=== PATIENT | male | born 1950 | race American Indian/Alaskan Native ===

== ENCOUNTER 2017-08-06 11:15 | Emergency (ER) | payer MEDICARE ==
--- NOTE | 2017-08-06 12:18 | Emergency Department Report ---
ED General Adult HPI - General Chief complaint: Nausea/Vomiting/Diarrhea Stated complaint: DIARRHEA Time Seen by Provider: 08/06/17 12:00 Source: patient, EMS Mode of arrival: Stretcher Limitations: Altered Mental Status - History of Present Illness Initial comments: Patient is a 67-year-old male past medical history of BPH who presents with difficulty urinating. Patient states that he's had trouble urinating for the last couple of days. Her EMS report patient has been having diarrhea however patient denies having any diarrhea patient has not had any episodes of diarrhea in the emergency department. Patient states that his symptoms are moderate. Nothing makes it better or worse denies having any nausea or vomiting. Patient denies having any chest pain or shortness of breath or fever. - Related Data Home Medications Medication Instructions Recorded Confirmed Last Taken Gabapentin 300 mg PO QDAY 12/24/15 08/06/17 Unknown Levothyroxine 25 mcg PO QDAY 12/24/15 08/06/17 Unknown Namenda 10 mg PO BID 12/24/15 08/06/17 Unknown Rivastigmine [Exelon Patch 9.5 mg TRANSDERMA QDAY 12/24/15 08/06/17 Unknown 9.5mg/24hr] Tamsulosin [Flomax] 0.4 mg PO QDAY 12/24/15 08/06/17 Unknown Docusate Sodium [Stool Softener] 100 mg PO DAILY 08/06/17 08/06/17 Unknown Travoprost [Travatan Z] 5 ml OP DAILY 08/06/17 08/06/17 Unknown Allergies Allergy/AdvReac Type Severity Reaction Status Date / Time No Known Allergies Allergy Verified 12/24/15 16:32 ED Review of Systems ROS: Stated complaint: DIARRHEA Other details as noted in HPI Constitutional: denies: chills, fever Eyes: denies: eye pain, eye discharge, vision change ENT: denies: ear pain, throat pain Respiratory: denies: cough, shortness of breath, wheezing Cardiovascular: denies: chest pain, palpitations Endocrine: no symptoms reported Gastrointestinal: denies: abdominal pain, nausea, diarrhea Genitourinary: as per HPI, other (difficulty urinating). denies: urgency, dysuria Musculoskeletal: denies: back pain, joint swelling, arthralgia Skin: denies: rash, lesions Neurological: denies: headache, weakness, paresthesias Psychiatric: denies: anxiety, depression Hematological/Lymphatic: denies: easy bleeding, easy bruising ED Past Medical Hx - Past Medical History Previous Medical History?: Yes Hx Congestive Heart Failure: No Hx Diabetes: No Hx Asthma: No Hx COPD: No Hx Dementia: Yes Additional medical history: hypothyroidism, bph, cataracts, korsakoss syndrome - Social History Smoking Status: Never Smoker Substance Use Type: None - Medications Home Medications: Home Medications Medication Instructions Recorded Confirmed Last Taken Type Gabapentin 300 mg PO QDAY 12/24/15 08/06/17 Unknown History Levothyroxine 25 mcg PO QDAY 12/24/15 08/06/17 Unknown History Namenda 10 mg PO BID 12/24/15 08/06/17 Unknown History Rivastigmine [Exelon Patch 9.5 mg TRANSDERMA QDAY 12/24/15 08/06/17 Unknown History 9.5mg/24hr] Tamsulosin [Flomax] 0.4 mg PO QDAY 12/24/15 08/06/17 Unknown History Docusate Sodium [Stool Softener] 100 mg PO DAILY 08/06/17 08/06/17 Unknown History Travoprost [Travatan Z] 5 ml OP DAILY 08/06/17 08/06/17 Unknown History ED Physical Exam - General Limitations: Altered Mental Status General appearance: alert, in no apparent distress - Head Head exam: Present: atraumatic, normocephalic - Eye Eye exam: Present: normal appearance - ENT ENT exam: Present: mucous membranes moist - Neck Neck exam: Present: normal inspection - Respiratory Respiratory exam: Present: normal lung sounds bilaterally. Absent: respiratory distress - Cardiovascular Cardiovascular Exam: Present: regular rate, normal rhythm. Absent: systolic murmur, diastolic murmur, rubs, gallop - GI/Abdominal GI/Abdominal exam: Present: soft, normal bowel sounds - Rectal Rectal exam: Present: deferred - Extremities Exam Extremities exam: Present: normal inspection - Back Exam Back exam: Present: normal inspection - Neurological Exam Neurological exam: Present: alert, oriented X3 - Psychiatric Psychiatric exam: Present: normal affect, normal mood - Skin Skin exam: Present: warm, dry, intact, normal color. Absent: rash ED Course Vital Signs 08/06/17 08/06/17 08/06/17 11:30 11:36 12:00 Temperature 97.6 F Pulse Rate 50 L 54 L 52 L Respiratory 14 20 17 Rate Blood Pressure 111/68 111/68 107/62 O2 Sat by Pulse 98 98 96 Oximetry 08/06/17 08/06/17 08/06/17 12:31 13:00 13:31 Temperature Pulse Rate 57 L 53 L Respiratory 17 17 19 Rate Blood Pressure 107/62 102/64 102/64 O2 Sat by Pulse 96 96 95 Oximetry ED Medical Decision Making - Lab Data Result diagrams: 08/06/17 12:05 08/06/17 12:01 Lab Results 08/06/17 08/06/17 08/06/17 Range/Units 12:01 12:05 13:35 WBC 9.0 (4.5-11.0) K/mm3 RBC 4.40 (3.65-5.03) M/mm3 Hgb 13.2 (11.8-15.2) gm/dl Hct 40.6 (35.5-45.6) % MCV 92 (84-94) fl MCH 30 (28-32) pg MCHC 33 (32-34) % RDW 13.3 (13.2-15.2) % Plt Count 186 (140-440) K/mm3 Lymph % (Auto) 21.0 (13.4-35.0) % [place] % (Auto) 7.8 H (0.0-7.3) % Eos % (Auto) 1.8 (0.0-4.3) % Baso % (Auto) 0.6 (0.0-1.8) % Lymph # 1.9 (1.2-5.4) K/mm3 [place] # 0.7 (0.0-0.8) K/mm3 Eos # 0.2 (0.0-0.4) K/mm3 Baso # 0.1 (0.0-0.1) K/mm3 Seg Neutrophils % 68.8 (40.0-70.0) % Seg Neutrophils # 6.2 (1.8-7.7) K/mm3 Sodium 143 (137-145) mmol/L Potassium 4.5 (3.6-5.0) mmol/L Chloride 107.0 (98-107) mmol/L Carbon Dioxide 26 (22-30) mmol/L Anion Gap 15 mmol/L BUN 25 H (9-20) mg/dL Creatinine 0.8 (0.8-1.5) mg/dL Estimated GFR > 60 ml/min BUN/Creatinine Ratio 31 % Glucose 92 (75-100) mg/dL Calcium 8.5 (8.4-10.2) mg/dL Urine Color Yellow (Yellow) Urine Turbidity Clear (Clear) Urine pH 5.0 (5.0-7.0) Ur Specific [place] 1.026 (1.003-1.030) Urine Protein <15 mg/dl (Negative) mg/dL Urine Glucose (UA) Neg (Negative) mg/dL Urine Ketones Neg (Negative) mg/dL Urine Blood Neg (Negative) Urine Nitrite Neg (Negative) Urine Bilirubin Neg (Negative) Urine Urobilinogen < 2.0 (<2.0) mg/dL Ur Leukocyte Esterase Neg (Negative) Urine WBC (Auto) 1.0 (0.0-6.0) /HPF Urine RBC (Auto) 2.0 (0.0-6.0) /HPF Urine Mucus Few /HPF - Medical Decision Making Chief medical diagnosis: BPH Differential medical diagnosis: Electrolyte abnormality, UTI I will get patient CBC, CMP and urinalysis and I'll place a Mixon catheter in patient. Patient is not having any diarrhea episode in the ED I will send patient back to where he was. Critical care attestation.: If time is entered above; I have spent that time in minutes in the direct care of this critically ill patient, excluding procedure time. ED Disposition Clinical Impression: Mixon catheter in place BPH (benign prostatic hyperplasia) Qualifiers: Lower urinary tract symptom presence: symptoms present Lower urinary tract symptom detail: incomplete bladder emptying Qualified Code(s): N40.1 - Benign prostatic hyperplasia with lower urinary tract symptoms; R39.14 - Feeling of incomplete bladder emptying; R39.14 - Feeling of incomplete bladder emptying Disposition: - TO HOME OR SELFCARE Is pt being admited?: No Does the pt Need Aspirin: No Condition: Stable Instructions: Mixon Catheter Placement and Care (ED), Urinary Leg Bag (GEN) Referrals: HANNAH TORRES MD [Staff Physician] - 3-5 Days
[2017-08-06 12:21] LABS: Basophils % (Auto) 0.6 % (0.0-1.8); Eosinophils % (Auto) 1.8 % (0.0-4.3); Hematocrit 40.6 % (35.5-45.6); Hemoglobin 13.2 gm/dl (11.8-15.2); Mean Corpuscular HGB Conc 33 % (32-34); Mean Corpuscular Hemoglobin 30 pg (28-32); Mean Corpuscular Volume 92 fl (84-94); Platelet Count 186 K/mm3 (140-440); Red Cell Distribution Width 13.3 % (13.2-15.2)
[2017-08-06 12:38] LABS: Anion Gap 15 mmol/L; BUN/Creatinine Ratio 31; Blood Urea Nitrogen 25 mg/dL (9-20); Calcium 8.5 mg/dL (8.4-10.2); Carbon Dioxide 26 mmol/L (22-30); Glucose 92 mg/dL (75-100); Potassium 4.5 mmol/L (3.6-5.0); Sodium 143 mmol/L (137-145)
[2017-08-06 13:55] LABS: Bilirubin,Urine NEG (Negative); Blood,Urine NEG (Negative); Ketones,Urine NEG (Negative); Leukocyte Esterase,Urine NEG (Negative); Mucus,Urine FEW /HPF; Nitrite,Urine NEG (Negative); Protein,Urine <15 mg/dL mg/dL (Negative); Urobilinogen,Urine < 2.0 mg/dL (<2.0)
[2017-08-06 16:49] VITALS: BP 110/70
== END 2017-08-06 17:01 | disposition home or self-care (01) ==
LOC: ED 11:15
DX: N40.1 Benign prostatic hyperplasia with lower urinary tract symptoms (principal); R39.14 Feeling of incomplete bladder emptying; E03.9 Hypothyroidism, unspecified
CPT/HCPCS: 36415; 51702; 80048; 81001; 85025

== ENCOUNTER 2017-08-07 09:30 | Emergency (ER) | payer MEDICARE ==
[2017-08-07 09:56] VITALS: BP 126/73
[2017-08-07] MEDS ORDERED: NACL 0.9% 1000 ML 1,000 ML IV ONE (12:38)
[2017-08-07] MEDS ORDERED: NACL ONE (12:57)
[2017-08-07 13:48] LABS: Alanine Aminotransferase 15 units/L (7-56); Albumin 4.6 g/dL (3.9-5); Albumin/Globulin Ratio 1.5 %; Alkaline Phosphatase 75 units/L (35-129); Anion Gap 16 mmol/L; BUN/Creatinine Ratio 40; Blood Urea Nitrogen 28 mg/dL (9-20); Calcium 9.2 mg/dL (8.4-10.2); Carbon Dioxide 23 mmol/L (22-30); Chloride 108.5 mmol/L (98-107); Glucose 96 mg/dL (75-100); Potassium 4.3 mmol/L (3.6-5.0); Sodium 143 mmol/L (137-145); Total Protein 7.7 g/dL (6.3-8.2)
--- NOTE | 2017-08-07 13:52 | Cat Scan Report ---
CT ABDOMEN AND PELVIS WITH CONTRAST: 08/07/17 09:30:00 CLINICAL: Diarrhea. COMPARISON: None. TECHNIQUE: Volumetric acquisition and 1.25 millimeter scan reconstructions after the uneventful intravenous injection of 100 cc Omnipaque 300. Consent was obtained prior to the administration of contrast. Oral contrast was not given. FINDINGS: Abdomen: Clear lung bases.Normal liver, bile ducts and gallbladder. The stomach is distended with fluid, secretions and air. A gastric mass or ulcer. Normal duodenum and spleen. The pancreas is normal except for a dilated pancreatic duct (4 mm) and a pancreatic tail cyst measuring 2.4 x 1.5 cm. No pancreatic calcifications, inflammatory changes or fluid collections. Normal right kidney within nondilated collecting system and ureter. Mild dilatation of the left renal collecting system and pelvis but no ureteral dilatation. No urinary calculus, mass or cyst. Normal adrenal glands. The small bowel is normal except for a few fluid-filled small bowel loops. The colon is filled with fluid. No colonic wall thickening or mass. No diverticulosis.An appendix is not identified. No mass, lymphadenopathy or ascites.No pneumoperitoneum. Pelvis: Normal urinary bladder with a Mixon catheter.A midline pelvic phlebolith measures 1.4 cm. Normal rectum and sigmoid colon. Bone windows demonstrate no bone lesion. IMPRESSION:1. Abundant fluid in bowel but no inflammatory changes to suggest enteritis or colitis. 2. 2.4 cm pancreatic tail cyst. 3. Pancreatic ductal dilatation but no signs of acute or chronic pancreatitis. 4. Gastric distention suggests gastroparesis.
--- NOTE | 2017-08-07 14:14 | Emergency Department Report ---
ED N/V/D HPI - General Chief complaint: Nausea/Vomiting/Diarrhea Stated complaint: DIARRHEA Time Seen by Provider: 08/07/17 12:23 Source: patient Mode of arrival: Ambulatory Limitations: Physical Limitation - History of Present Illness Initial comments: 67-year-old male with a past medical history of dementia, korsakoss syndrome, hypothyroidism, and BPH presents from the [facility] with diarrhea. Patient was here yesterday with urinary retention and received evaluation and received Mixon catheter insertion. Complaint was also diarrhea at this time but it was documented a patient did not have a loose stools during ED stay. 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 Episodes have continued since his discharge from the hospital yesterday and his urinary catheter appears to be leaking. Patient denies any pain. Patient denies of pain to his penile area at cath insertion. No complaints of fever, recent travel, sick contacts, or recent antibiotic use. - Related Data Home Medications Medication Instructions Recorded Confirmed Last Taken Gabapentin 300 mg PO QDAY 12/24/15 08/06/17 Unknown Levothyroxine 25 mcg PO QDAY 12/24/15 08/06/17 Unknown Namenda 10 mg PO BID 12/24/15 08/06/17 Unknown Rivastigmine [Exelon Patch 9.5 mg TRANSDERMA QDAY 12/24/15 08/06/17 Unknown 9.5mg/24hr] Tamsulosin [Flomax] 0.4 mg PO QDAY 12/24/15 08/06/17 Unknown Docusate Sodium [Stool Softener] 100 mg PO DAILY 08/06/17 08/06/17 Unknown Travoprost [Travatan Z] 5 ml OP DAILY 08/06/17 08/06/17 Unknown Previous Rx's Medication Instructions Recorded Last Taken Type Loperamide [Imodium] 2 mg PO Q2HR #20 capsule 08/07/17 Unknown Rx Allergies Allergy/AdvReac Type Severity Reaction Status Date / Time No Known Allergies Allergy Verified 08/07/17 09:50 ED Review of Systems ROS: Stated complaint: DIARRHEA Other details as noted in HPI Comment: All other systems reviewed and negative Other: Constitutional: No fevers chills Eyes: No eye pain visual changes ENT: No ear pain or throat pain Neck: Denies pain Respiratory: Denies cough wheezing shortness of breath Cardiovascular: Denies chest pain, palpitations, syncope GI: Denies abdominal pain, nausea, vomiting : As per HPI Musculoskeletal: Denies back pain Skin: Denies rash, lesions, erythema Neurologic: Denies headache, numbness, weakness Psychiatric: Denies suicidal ideation, hallucinations ED Past Medical Hx - Past Medical History Hx Congestive Heart Failure: No Hx Diabetes: No Hx Asthma: No Hx COPD: No Hx Dementia: Yes Additional medical history: hypothyroidism, bph, cataracts, korsakoss syndrome - Social History Smoking Status: Never Smoker Substance Use Type: None - Medications Home Medications: Home Medications Medication Instructions Recorded Confirmed Last Taken Type Gabapentin 300 mg PO QDAY 12/24/15 08/06/17 Unknown History Levothyroxine 25 mcg PO QDAY 12/24/15 08/06/17 Unknown History Namenda 10 mg PO BID 12/24/15 08/06/17 Unknown History Rivastigmine [Exelon Patch 9.5 mg TRANSDERMA QDAY 12/24/15 08/06/17 Unknown History 9.5mg/24hr] Tamsulosin [Flomax] 0.4 mg PO QDAY 12/24/15 08/06/17 Unknown History Docusate Sodium [Stool Softener] 100 mg PO DAILY 08/06/17 08/06/17 Unknown History Travoprost [Travatan Z] 5 ml OP DAILY 08/06/17 08/06/17 Unknown History Loperamide [Imodium] 2 mg PO Q2HR #20 capsule 08/07/17 Unknown Rx ED Physical Exam - General Limitations: Physical Limitation - Other Other exam information: General: No limitations, patient is alert in no acute distress Head exam: Atraumatic, normocephalic Eyes exam: Normal appearance ENT: Moist mucous membrane, normal oropharynx Neck exam: Normal inspection, full range of motion, no meningismus nontender Respiratory exam: Clear to auscultation bilateral, no wheezes, rales, crackles Cardiovascular: Normal rate and rhythm, normal heart sounds Abdomen: Soft, nondistended, hyperactive bowel sounds, no rebound or guarding, nontender : Uncircumcised with Mixon catheter in place. Discomfort at insertion site. No penile lesions, testicular tenderness, edema, or erythema Extremity: Full range of motion normal inspection no deformity Back: Normal Inspection, full range of motion, no tenderness Neurologic: Alert, oriented x3, cranial nerves intact, no motor or sensory deficit Psychiatric: normal affect, normal mood Skin: Warm, dry, intact ED Course Vital Signs 08/07/17 08/07/17 09:53 12:38 Temperature 97.7 F Pulse Rate 67 Respiratory 20 16 Rate Blood Pressure 126/73 O2 Sat by Pulse 100 97 Oximetry - Reevaluation(s) Reevaluation #1: 08/07/17 14:16 Patient treated with 1 L normal saline in the ED. Remains pain-free ED Medical Decision Making - Lab Data Result diagrams: 08/07/17 14:53 08/07/17 13:06 Lab Results 08/07/17 08/07/17 08/07/17 Range/Units 13:06 13:06 14:53 WBC TNR 12.3 H RBC TNR 4.51 Hgb TNR 14.1 Hct TNR 41.7 MCV TNR 93 MCH TNR 31 MCHC TNR 34 RDW TNR 13.4 Plt Count TNR 181 Lymph % (Auto) TNR 13.0 L [place] % (Auto) TNR 6.0 Eos % (Auto) TNR 1.3 Baso % (Auto) TNR 0.5 Lymph # TNR 1.6 [place] # TNR 0.7 Eos # TNR 0.2 Baso # TNR 0.1 Seg Neutrophils % TNR 79.2 H Seg Neutrophils # TNR 9.7 H Sodium 143 (137-145) mmol/L Potassium 4.3 (3.6-5.0) mmol/L Chloride 108.5 H (98-107) mmol/L Carbon Dioxide 23 (22-30) mmol/L Anion Gap 16 mmol/L BUN 28 H (9-20) mg/dL Creatinine 0.7 L (0.8-1.5) mg/dL Estimated GFR > 60 ml/min BUN/Creatinine Ratio 40 % Glucose 96 (75-100) mg/dL Calcium 9.2 (8.4-10.2) mg/dL Total Bilirubin 0.30 (0.1-1.2) mg/dL AST 17 (5-40) units/L ALT 15 (7-56) units/L Alkaline Phosphatase 75 (35-129) units/L Total Protein 7.7 (6.3-8.2) g/dL Albumin 4.6 (3.9-5) g/dL Albumin/Globulin Ratio 1.5 % - Radiology Data Radiology results: report reviewed CT abdomen and pelvis IV contrast: abundant fluid in the bowel but no inflammatory changes to suggest enteritis or colitis. 2.4 cm pancreatic tail cysts. Pancreatic ductal dilatation but no signs of acute or chronic pancreatitis. Gastric distention suggests gastroparesis - Medical Decision Making Patient is nontoxic appearing and does not have any pain. CT does not show any inflammatory changes therefore do not believe that antibiotics are indicated at this time. Patient be treated symptomatically for diarrhea. CT shows gastric distention suggestive gastroparesis however pt does not have any nausea or vomiting. Pancreatic cyst seen without signs of pancreatitis and patient does not have any epigastric tenderness - Differential Diagnosis gastroenteritis, colitis, infectious diarrhea Critical Care Time: No Critical care attestation.: If time is entered above; I have spent that time in minutes in the direct care of this critically ill patient, excluding procedure time. ED Disposition Clinical Impression: Acute diarrhea Disposition: DC-01 TO HOME OR SELFCARE Is pt being admited?: No Does the pt Need Aspirin: No Condition: Stable Instructions: Acute Diarrhea (ED) Additional Instructions: Take the Imodium as needed. Continue to drink plenty of fluids. Return if symptoms worsen as indicated by your discharge instructions Prescriptions: Loperamide [Imodium] 2 mg PO Q2HR #20 capsule Referrals: BENJIE VELASCO MD [Primary Care Provider] - 3-5 Days Time of Disposition: 16:14
[2017-08-07 14:25] LABS: Hematocrit TNR % (35.5-45.6); Hemoglobin TNR gm/dl (11.8-15.2); Mean Corpuscular HGB Conc TNR % (32-34); Mean Corpuscular Hemoglobin TNR pg (28-32); Mean Corpuscular Volume TNR fl (84-94); Red Blood Count TNR M/mm3 (3.65-5.03); White Blood Count TNR K/mm3 (4.5-11.0)
[2017-08-07 14:26] LABS: Basophils % (Auto) TNR % (0.0-1.8); Eosinophils % (Auto) TNR % (0.0-4.3); Mean Platelet Volume TNR fl (6-12); Platelet Count TNR K/mm3 (140-440); Red Cell Distribution Width TNR % (13.2-15.2)
[2017-08-07 15:20] LABS: Basophils % (Auto) 0.5 % (0.0-1.8); Eosinophils % (Auto) 1.3 % (0.0-4.3); Hematocrit 41.7 % (35.5-45.6); Hemoglobin 14.1 gm/dl (11.8-15.2); Mean Corpuscular HGB Conc 34 % (32-34); Mean Corpuscular Hemoglobin 31 pg (28-32); Mean Corpuscular Volume 93 fl (84-94); Platelet Count 181 K/mm3 (140-440); Red Blood Count 4.51 M/mm3 (3.65-5.03); Red Cell Distribution Width 13.4 % (13.2-15.2); White Blood Count 12.3 K/mm3 (4.5-11.0)
[2017-08-07] MEDS ORDERED: IMODIUM PO ONE (15:21)
== END 2017-08-07 17:00 | disposition home or self-care (01) ==
LOC: ED 09:30
DX: R19.7 Diarrhea, unspecified (principal); E03.9 Hypothyroidism, unspecified; K86.2 Cyst of pancreas
CPT/HCPCS: 36415; 74177; 80053; 85025; 96360; 96361; 99284; J7030; Q9967

== ENCOUNTER 2021-04-12 12:43 | Observation (INO) | payer MEDICARE ==
[2021-04-12 14:40] LABS: Basophils % (Auto) 0.7 % (0.0-1.8); Eosinophils # (Auto) 0.2 K/mm3 (0.0-0.4); Eosinophils % (Auto) 2.8 % (0.0-4.3); Hematocrit 40.8 % (35.5-45.6); Hemoglobin 13.9 gm/dl (11.8-15.2); Lymphocytes # (Auto) 1.9 K/mm3 (1.2-5.4); Lymphocytes % (Auto) 28.2 % (13.4-35.0); Mean Corpuscular HGB Conc 34 % (32-34); Mean Corpuscular Volume 91 fl (84-94); Monocytes # (Auto) 0.6 K/mm3 (0.0-0.8); Monocytes % (Auto) 8.4 % (0.0-7.3); Platelet Count 198 K/mm3 (140-440); Red Cell Distribution Width 13.4 % (13.2-15.2)
[2021-04-12 15:03] LABS: Alanine Aminotransferase 12 units/L (7-56); Albumin 4.2 g/dL (3.9-5); BUN/Creatinine Ratio 31; Blood Urea Nitrogen 31 mg/dL (9-20); Calcium 8.6 mg/dL (8.4-10.2); Hemolysis Index 5
[2021-04-12] MEDS ORDERED: SODIUM CHLORIDE 0.9% 500 ML 500 ML IV ONE (18:03)
--- NOTE | 2021-04-12 18:15 | Emergency Department Report ---
HPI - General Chief Complaint: Weakness Time Seen by Provider: 04/12/21 18:00 - HPI HPI: This is a 71-year-old male who presents to the emergency department via EMS from [facility] with the complaint of feeling weak. 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 Patient is currently AAO x2, to person and place but not time. Otherwise he is jovial, awake, and has no complaints. He denies any fever, chest pain, shortness of breath, nausea, vomiting. It does not appear that the patient received anything for the alleged complaints. I was later able to get in touch with the staff supervisor blasting at [facility] ([phone]), and she tells me that the patient did pass out while in the bathroom earlier today which is what prompted the call for EMS. ED Past Medical Hx - Past Medical History Previous Medical History?: Yes Hx Congestive Heart Failure: No Hx Diabetes: No Hx Asthma: No Hx COPD: No Hx Dementia: Yes Additional medical history: hypothyroidism, bph, cataracts, korsakoss syndrome - Surgical History Past Surgical History?: No - Social History Smoking Status: Never Smoker Substance Use Type: None - Medications Home Medications: Home Medications Medication Instructions Recorded Confirmed Last Taken Type Gabapentin 300 mg PO QDAY 12/24/15 08/06/17 Unknown History Levothyroxine 25 mcg PO QDAY 12/24/15 08/06/17 Unknown History Namenda 10 mg PO BID 12/24/15 08/06/17 Unknown History Rivastigmine [Exelon Patch 9.5 mg TRANSDERMA QDAY 12/24/15 08/06/17 Unknown H istory 9.5mg/24hr] Tamsulosin [Flomax] 0.4 mg PO QDAY 12/24/15 08/06/17 Unknown History Docusate Sodium [Stool Softener] 100 mg PO DAILY 08/06/17 08/06/17 Unknown History Travoprost (Nf) [Travatan Z] 5 ml OP DAILY 08/06/17 08/06/17 Unknown History Loperamide [Imodium] 2 mg PO Q2HR #20 capsule 08/07/17 Unknown Rx ED Review of Systems ROS: Stated complaint: WEAKNESS Other details as noted in HPI Comment: All other systems reviewed and negative Constitutional: weakness (Per EMS). denies: chills, fever Eyes: denies: eye pain, vision change ENT: denies: ear pain, throat pain Respiratory: denies: cough, shortness of breath Cardiovascular: denies: chest pain, palpitations Gastrointestinal: denies: abdominal pain, vomiting Genitourinary: denies: dysuria, discharge Musculoskeletal: denies: back pain, arthralgia Skin: denies: rash, lesions Neurological: denies: headache, weakness Physical Exam - Physical Exam Vital Signs: Vital Signs 04/12/21 12:53 Temperature 98.3 F Pulse Rate 56 L Respiratory 16 Rate Blood Pressure 116/68 [Left] O2 Sat by Pulse 94 Oximetry Physical Exam: GENERAL: The patient is well-developed well-nourished. HENT: Normocephalic. Atraumatic. Patient has moist mucous membranes. EYES: Extraocular motions are intact. No nystagmus. NECK: Supple. Trachea is midline. CHEST/LUNGS: Clear to auscultation. There is no respiratory distress noted. HEART/CARDIOVASCULAR: Regular. There is no tachycardia. There is no murmur. ABDOMEN: Abdomen is soft, nontender. Patient has normal bowel sounds. There is no abdominal distention. SKIN: Skin is warm and dry. NEURO: The patient is awake, alert, and cooperative, but confused. AAO x2 to person and place but not time. Normal speech. No facial asymmetry. No pronator drift. MUSCULOSKELETAL: There is no tenderness or deformity. ED Course Vital Signs 04/12/21 12:53 Temperature 98.3 F Pulse Rate 56 L Respiratory 16 Rate Blood Pressure 116/68 [Left] O2 Sat by Pulse 94 Oximetry - Consultations Consultation #1: 04/12/21 20:39 I spoke with the contract officer on-call, Dr. Sanabria. We discussed the patient's bradycardia including the patient having a first-degree AV block and the possibility of some of his medications causing the bradycardia as well. At that time, due to the patient's dementia, we did not know what the symptoms were leading up to the patient coming to the emergency department for evaluation. I was later able to speak with the staff supervisor blasting at the [facility] who says that the patient did pass out prior to presentation. Therefore, the patient will be admitted for further evaluation and [facility] will consult. ED Medical Decision Making - Lab Data Result diagrams: 04/12/21 22:43 04/12/21 22:43 Lab Results 04/12/21 04/12/21 04/12/21 Range/Units 14:25 14:25 17:40 WBC 6.7 (4.5-11.0) K/mm3 RBC 4.50 (3.65-5.03) M/mm3 Hgb 13.9 (11.8-15.2) gm/dl Hct 40.8 (35.5-45.6) % MCV 91 (84-94) fl MCH 31 (28-32) pg MCHC 34 (32-34) % RDW 13.4 (13.2-15.2) % Plt Count 198 (140-440) K/mm3 Lymph % (Auto) 28.2 (13.4-35.0) % [place] % (Auto) 8.4 H (0.0-7.3) % Eos % (Auto) 2.8 (0.0-4.3) % Baso % (Auto) 0.7 (0.0-1.8) % Lymph # (Auto) 1.9 (1.2-5.4) K/mm3 [place] # (Auto) 0.6 (0.0-0.8) K/mm3 Eos # (Auto) 0.2 (0.0-0.4) K/mm3 Baso # (Auto) 0.0 (0.0-0.1) K/mm3 Seg Neutrophils % 59.9 (40.0-70.0) % Seg Neutrophils # 4.0 (1.8-7.7) K/mm3 Sodium 141 (137-145) mmol/L Potassium 4.6 (3.6-5.0) mmol/L Chloride 108.3 H (98-107) mmol/L Carbon Dioxide 25 (22-30) mmol/L Anion Gap 12 mmol/L BUN 31 H (9-20) mg/dL Creatinine 1.0 (0.8-1.3) mg/dL Estimated GFR > 60 ml/min BUN/Creatinine Ratio 31 % Glucose 88 (75-100) mg/dL Calcium 8.6 (8.4-10.2) mg/dL Total Bilirubin 0.30 (0.1-1.2) mg/dL AST 14 (5-40) units/L ALT 12 (7-56) units/L Alkaline Phosphatase 79 (35-129) units/L Ammonia (25-60) umol/L Troponin T < 0.010 (0.00-0.029) ng/mL Total Protein 6.6 (6.3-8.2) g/dL Albumin 4.2 (3.9-5) g/dL Albumin/Globulin Ratio 1.8 % TSH (0.270-4.200) mlU/mL Urine Bilirubin (Negative) Urine RBC (Auto) (0.0-6.0) /HPF U Epithel Cells (Auto) (0-13.0) /HPF 04/12/21 04/12/21 04/12/21 Range/Units 18:18 18:18 22:12 WBC (4.5-11.0) K/mm3 RBC (3.65-5.03) M/mm3 Hgb (11.8-15.2) gm/dl Hct (35.5-45.6) % MCV (84-94) fl MCH (28-32) pg MCHC (32-34) % RDW (13.2-15.2) % Plt Count (140-440) K/mm3 Lymph % (Auto) (13.4-35.0) % [place] % (Auto) (0.0-7.3) % Eos % (Auto) (0.0-4.3) % Baso % (Auto) (0.0-1.8) % Lymph # (Auto) (1.2-5.4) K/mm3 [place] # (Auto) (0.0-0.8) K/mm3 Eos # (Auto) (0.0-0.4) K/mm3 Baso # (Auto) (0.0-0.1) K/mm3 Seg Neutrophils % (40.0-70.0) % Seg Neutrophils # (1.8-7.7) K/mm3 Sodium (137-145) mmol/L Potassium (3.6-5.0) mmol/L Chloride (98-107) mmol/L Carbon Dioxide (22-30) mmol/L Anion Gap mmol/L BUN (9-20) mg/dL Creatinine (0.8-1.3) mg/dL Estimated GFR ml/min BUN/Creatinine Ratio % Glucose (75-100) mg/dL Calcium (8.4-10.2) mg/dL Total Bilirubin (0.1-1.2) mg/dL AST (5-40) units/L ALT (7-56) units/L Alkaline Phosphatase (35-129) units/L Ammonia 18.0 L (25-60) umol/L Troponin T (0.00-0.029) ng/mL Total Protein (6.3-8.2) g/dL Albumin (3.9-5) g/dL Albumin/Globulin Ratio % TSH 2.900 (0.270-4.200) mlU/mL Urine Bilirubin Neg (Negative) Urine RBC (Auto) < 1.0 (0.0-6.0) /HPF U Epithel Cells (Auto) < 1.0 (0-13.0) /HPF 04/12/21 04/12/21 Range/Units 22:43 22:43 WBC 6.0 (4.5-11.0) K/mm3 RBC 4.38 (3.65-5.03) M/mm3 Hgb 13.3 (11.8-15.2) gm/dl Hct 40.0 (35.5-45.6) % MCV 91 (84-94) fl MCH 30 (28-32) pg MCHC 33 (32-34) % RDW 13.6 (13.2-15.2) % Plt Count 171 (140-440) K/mm3 Lymph % (Auto) 35.4 H (13.4-35.0) % [place] % (Auto) 9.4 H (0.0-7.3) % Eos % (Auto) 2.9 (0.0-4.3) % Baso % (Auto) 0.5 (0.0-1.8) % Lymph # (Auto) 2.1 (1.2-5.4) K/mm3 [place] # (Auto) 0.6 (0.0-0.8) K/mm3 Eos # (Auto) 0.2 (0.0-0.4) K/mm3 Baso # (Auto) 0.0 (0.0-0.1) K/mm3 Seg Neutrophils % 51.8 (40.0-70.0) % Seg Neutrophils # 3.1 (1.8-7.7) K/mm3 Sodium 140 (137-145) mmol/L Potassium 4.0 (3.6-5.0) mmol/L Chloride 107.2 H (98-107) mmol/L Carbon Dioxide 26 (22-30) mmol/L Anion Gap 11 mmol/L BUN 29 H (9-20) mg/dL Creatinine 0.9 (0.8-1.3) mg/dL Estimated GFR > 60 ml/min BUN/Creatinine Ratio 32 % Glucose 78 (75-100) mg/dL Calcium 8.2 L (8.4-10.2) mg/dL Total Bilirubin (0.1-1.2) mg/dL AST (5-40) units/L ALT (7-56) units/L Alkaline Phosphatase (35-129) units/L Ammonia (25-60) umol/L Troponin T (0.00-0.029) ng/mL Total Protein (6.3-8.2) g/dL Albumin (3.9-5) g/dL Albumin/Globulin Ratio % TSH (0.270-4.200) mlU/mL Urine Bilirubin (Negative) Urine RBC (Auto) (0.0-6.0) /HPF U Epithel Cells (Auto) (0-13.0) /HPF - EKG Data -: EKG Interpreted by Me EKG shows normal: sinus rhythm, axis, intervals (Prolonged WA interval), QRS complexes, ST-T waves Rate: bradycardia (45 bpm) - EKG Data When compared to previous EKG there are: previous EKG unavailable Interpretation: other (Sinus bradycardia 45 bpm, first-degree AV block. No ST elevation [place].) - Radiology Data Radiology results: image reviewed interpreted by me: Chest x-ray does not show any acute process. There are no pleural effusions, obvious pneumonia and there is no pneumothorax. No widened mediastinum. - Medical Decision Making Initially the patient presented to the emergency department with just the comp laint, per EMS, of "weakness." I was later able to speak with the staff supervisor blasting at the patient's [facility] who did confirm that patient had a syncopal episode in the bathroom prior to presentation. Since my initial examination the patient has been awake, cooperative, but is confused at AAO x2. However he does have a diagnosed history of dementia and Wernicke Korsakoff. Other than the confusion, the patient does not have any focal, motor or sensory deficits and his cranial nerves are intact. EKG did not have any morphology consistent with ST elevation myocardial infarction. He does have a prolonged WA interval indicating a first-degree AV block. The EKG shows bradycardia at 43 bpm. The patient's labs have been mostly unremarkable including CBC, metabolic panel, negative troponin, normal thyroid function. During the patient's ED course he has been seen having bradycardia as low as 39 bpm while at rest. This may be partially from his first-degree AV block. The patient is on Exelon for his dementia which also may add to the bradycardia. However, after speaking with cardiology, since the patient appears to have symptomatic bradycardia causing his syncope, he will be admitted to the hospital for further evaluation and treatment. He was accepted for admission by the hospitalist, Dr. Calixto. Critical Care Time: No Critical care attestation.: If time is entered above; I have spent that time in minutes in the direct care of this critically ill patient, excluding procedure time. ED Disposition Clinical Impression: Symptomatic bradycardia Syncope Qualifiers: Syncope type: unspecified Qualified Code(s): R55 - Syncope and collapse Disposition: 09 OP ADMIT IP TO THIS HOSP Is pt being admited?: Yes Condition: Fair Instructions: Syncope (ED) Referrals: BENJIE VELASCO MD [Primary Care Provider] - 3-5 Days Time of Disposition: 21:51
[2021-04-12] MEDS ORDERED: ACETAMINOPHEN 325 MG TAB PO PRN (22:17)
[2021-04-12] MEDS ORDERED: traMADol 50 MG TAB PO PRN (22:17)
[2021-04-12] MEDS ORDERED: MORPHINE 4 MG/1 ML INJ IV PRN (22:17)
[2021-04-12] MEDS ORDERED: NITROGLYCERIN 0.4 MG TAB SUBL SL PRN (22:17)
--- NOTE | 2021-04-12 22:27 | History and Physical Report ---
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 Patient is currently AAO x2, to person and place but not time. Otherwise he is jovial, awake, and has no complaints. He denies any fever, chest pain, shortness of breath, nausea, vomiting. It does not appear that the patient received anything for the alleged complaints. [facility] department supervisor [facility] ([phone]), and she tells me that the patient did pass out while in the bathroom earlier today which is what prompted the call for EMS. In the emergency room patient heart rate ranging from 42 43-59. Patient denies any chest pain no dizziness Past History Past Medical History: hypothyroidism, other (Dementia BPH, cataract, Korsakoff syndrome) Medications and Allergies Allergies Allergy/AdvReac Type Severity Reaction Status Date / Time No Known Allergies Allergy Verified 04/12/21 17:54 Home Medications Medication Instructions Recorded Confirmed Last Taken Type Gabapentin 300 mg PO QDAY 12/24/15 08/06/17 Unknown History Levothyroxine 25 mcg PO QDAY 12/24/15 08/06/17 Unknown History Namenda 10 mg PO BID 12/24/15 08/06/17 Unknown History Rivastigmine [Exelon Patch 9.5 mg TRANSDERMA QDAY 12/24/15 08/06/17 Unknown History 9.5mg/24hr] Tamsulosin [Flomax] 0.4 mg PO QDAY 12/24/15 08/06/17 Unknown History Docusate Sodium [Stool Softener] 100 mg PO DAILY 08/06/17 08/06/17 Unknown History Travoprost (Nf) [Travatan Z] 5 ml OP DAILY 08/06/17 08/06/17 Unknown History Loperamide [Imodium] 2 mg PO Q2HR #20 capsule 08/07/17 Unknown Rx Active Meds: Active Medications Acetaminophen (Acetaminophen 325 Mg Tab) 650 mg PO Q6H PRN PRN Reason: Pain, Mild (1-3) Aspirin (Aspirin 81 Mg Tab Chew) 81 mg PO QDAY [facility] Atorvastatin Calcium (Atorvastatin 40 Mg Tab) 40 mg PO QHS [facility] Heparin Sodium (Porcine) (Heparin 5,000 Unit/1 Ml Vial) 5,000 unit SUB-Q Q8HR [facility] Sodium Chloride (Nacl 0.9% 1000 Ml) 1,000 mls @ 100 mls/hr IV DIRECT [facility] Miscellaneous Medication (Docusate Sodium [Stool Softener]) 100 mg PO DAILY [facility] Miscellaneous Medication (Gabapentin) 300 mg PO QDAY [facility] Miscellaneous Medication (Levothyroxine) 25 mcg PO QDAY [facility] Miscellaneous Medication (Namenda) 10 mg PO BID [facility] Miscellaneous Medication (Travoprost (Nf) [Travatan Z 0.004%]) 5 ml OP DAILY [facility] Morphine Sulfate (Morphine 4 Mg/1 Ml Inj) 2 mg IV Q5MIN PRN PRN Reason: Chest Pain Nitroglycerin (Nitroglycerin 0.4 Mg Tab Subl) 0.4 mg SL Q5M PRN PRN Reason: Chest Pain Pantoprazole Sodium (Pantoprazole 40 Mg Tab) 40 mg PO QDAY [facility] Rivastigmine (Rivastigmine 9.5 Mg/24 Hr Patch) 9.5 mg TD QDAY [facility] Sodium Chloride (Sodium Chloride 0.9% 10 Ml Flush Syringe) 10 ml IV PRN PRN PRN Reason: LINE FLUSH Tamsulosin HCl (Tamsulosin 0.4 Mg Cap) 0.4 mg PO QDAY [facility] Tramadol HCl (Tramadol 50 Mg Tab) 50 mg PO Q6H PRN PRN Reason: Pain, Moderate (4-6) Review of Systems Constitutional: weakness Cardiovascular: syncope Exam - Constitutional Vitals: Temp Pulse Resp BP Pulse Ox 98.3 F 43 L 18 92/43 97 04/12/21 12:53 04/12/21 18:30 04/12/21 18:30 04/12/21 18:30 04/12/21 18:30 General appearance: Present: no acute distress, well-nourished - EENT Eyes: Present: PERRL ENT: hearing intact, clear oral mucosa - Neck Neck: Present: supple, normal ROM - Respiratory Respiratory effort: normal Respiratory: bilateral: CTA - Cardiovascular Heart Sounds: Present: S1 & S2. Absent: rub, click - Extremities Extremities: pulses symmetrical, No edema Peripheral Pulses: within normal limits - Abdominal General gastrointestinal: Present: soft, non-tender, non-distended, normal bowel sounds Male genitourinary: Present: normal - Integumentary Integumentary: Present: clear, warm, dry - Musculoskeletal Musculoskeletal: gait normal, strength equal bilaterally - Psychiatric Psychiatric: appropriate mood/affect, intact judgment & insight - Neurologic Neurologic: CNII-XII intact, moves all extremities HEART Score - HEART Score Troponin: Troponin T < 0.010 ng/mL (0.00-0.029) 04/12/21 17:40 Results - Labs CBC & Chem 7: 04/12/21 14:25 04/12/21 14:25 Labs: Laboratory Last Values WBC 6.7 K/mm3 (4.5-11.0) 04/12/21 14:25 RBC 4.50 M/mm3 (3.65-5.03) 04/12/21 14:25 Hgb 13.9 gm/dl (11.8-15.2) 04/12/21 14:25 Hct 40.8 % (35.5-45.6) 04/12/21 14:25 MCV 91 fl (84-94) 04/12/21 14:25 MCH 31 pg (28-32) 04/12/21 14:25 MCHC 34 % (32-34) 04/12/21 14:25 RDW 13.4 % (13.2-15.2) 04/12/21 14:25 Plt Count 198 K/mm3 (140-440) 04/12/21 14:25 Lymph % (Auto) 28.2 % (13.4-35.0) 04/12/21 14:25 [place] % (Auto) 8.4 % (0.0-7.3) H 04/12/21 14:25 Eos % (Auto) 2.8 % (0.0-4.3) 04/12/21 14:25 Baso % (Auto) 0.7 % (0.0-1.8) 04/12/21 14:25 Lymph # (Auto) 1.9 K/mm3 (1.2-5.4) 04/12/21 14:25 [place] # (Auto) 0.6 K/mm3 (0.0-0.8) 04/12/21 14:25 Eos # (Auto) 0.2 K/mm3 (0.0-0.4) 04/12/21 14:25 Baso # (Auto) 0.0 K/mm3 (0.0-0.1) 04/12/21 14:25 Seg Neutrophils % 59.9 % (40.0-70.0) 04/12/21 14:25 Seg Neutrophils # 4.0 K/mm3 (1.8-7.7) 04/12/21 14:25 Sodium 141 mmol/L (137-145) 04/12/21 14:25 Potassium 4.6 mmol/L (3.6-5.0) 04/12/21 14:25 Chloride 108.3 mmol/L (98-107) H 04/12/21 14:25 Carbon Dioxide 25 mmol/L (22-30) 04/12/21 14:25 Anion Gap 12 mmol/L 04/12/21 14:25 BUN 31 mg/dL (9-20) H 04/12/21 14:25 Creatinine 1.0 mg/dL (0.8-1.3) 04/12/21 14:25 Estimated GFR > 60 ml/min 04/12/21 14:25 BUN/Creatinine Ratio 31 % 04/12/21 14:25 Glucose 88 mg/dL (75-100) 04/12/21 14:25 Calcium 8.6 mg/dL (8.4-10.2) 04/12/21 14:25 Total Bilirubin 0.30 mg/dL (0.1-1.2) 04/12/21 14:25 AST 14 units/L (5-40) 04/12/21 14:25 ALT 12 units/L (7-56) 04/12/21 14:25 Alkaline Phosphatase 79 units/L (35-129) 04/12/21 14:25 Ammonia 18.0 umol/L (25-60) L 04/12/21 18:18 Troponin T < 0.010 ng/mL (0.00-0.029) 04/12/21 17:40 Total Protein 6.6 g/dL (6.3-8.2) 04/12/21 14:25 Albumin 4.2 g/dL (3.9-5) 04/12/21 14:25 Albumin/Globulin Ratio 1.8 % 04/12/21 14:25 TSH 2.900 mlU/mL (0.270-4.200) 04/12/21 18:18 Assessment and Plan VTE prophylaxis?: Chemical Plan of care discussed with patient/family: Yes - Patient Problems (1) Syncope Current Visit: Yes Status: Acute Plan to address problem: Admit the patient to the medical telemetry. Aspirin 81 mg p.o. daily. Lipitor 40 mg p.o. daily. Normal saline at the rate of 100 cc/h. We will do the serial cardiac enzyme. We also do echocardiogram. We will monitor the patient closely. Will consult cardiology for evaluation (2) Symptomatic bradycardia Current Visit: Yes Status: Acute Plan to address problem: Aspirin 81 mg p.o. daily. Lipitor 40 mg p.o. daily. Normal saline at the rate of 100 cc/h. We will do the serial cardiac enzyme. We also do echocardiogram. We will monitor the patient closely. Will consult cardiology for evaluation (3) Dementia Current Visit: Yes Status: Acute Plan to address problem: Patient is on Namenda 10 mg p.o. twice daily and Exelon patch. We will monitor the patient closely (4) Hypothyroidism Current Visit: Yes Status: Acute Plan to address problem: Levothyroxine 25 mcg p.o. daily. We will check the TSH. Outpatient follow-up with endocrinology. (5) DVT prophylaxis Current Visit: Yes Status: Acute Plan to address problem: Heparin 5000 units subcu every 8 hours for DVT prophylaxis. Protonix 40 mg p.o. daily for GI prophylaxis. Patient is a full code
[2021-04-12 22:59] LABS: Basophils % (Auto) 0.5 % (0.0-1.8); Eosinophils # (Auto) 0.2 K/mm3 (0.0-0.4); Eosinophils % (Auto) 2.9 % (0.0-4.3); Hemoglobin 13.3 gm/dl (11.8-15.2); Lymphocytes # (Auto) 2.1 K/mm3 (1.2-5.4); Lymphocytes % (Auto) 35.4 % (13.4-35.0); Mean Corpuscular HGB Conc 33 % (32-34); Mean Corpuscular Volume 91 fl (84-94); Monocytes # (Auto) 0.6 K/mm3 (0.0-0.8); Monocytes % (Auto) 9.4 % (0.0-7.3); Platelet Count 171 K/mm3 (140-440); Red Blood Count 4.38 M/mm3 (3.65-5.03); Red Cell Distribution Width 13.6 % (13.2-15.2)
[2021-04-12 23:13] LABS: Bilirubin,Urine NEG (Negative); Blood,Urine NEG (Negative); Color,Urine Yellow (Yellow); Mucus,Urine FEW /HPF; Protein,Urine <15 mg/dL mg/dL (Negative); RBC,Urine < 1.0 /HPF (0.0-6.0)
[2021-04-12 23:17] LABS: BUN/Creatinine Ratio 32; Blood Urea Nitrogen 29 mg/dL (9-20); Calcium 8.2 mg/dL (8.4-10.2); Hemolysis Index 2
--- NOTE | 2021-04-13 00:08 | XRay Report ---
CHEST 1 VIEW 04/12/2021 11:35 PM INDICATION / CLINICAL INFORMATION: Syncope. COMPARISON: 12/24/15 FINDINGS: SUPPORT DEVICES: None. HEART / MEDIASTINUM: No significant abnormality. LUNGS / PLEURA: No significant pulmonary or pleural abnormality. No pneumothorax. ADDITIONAL FINDINGS: No significant additional findings. IMPRESSION: 1. No acute findings. No change. Signer Name: Nimesh Montilla MD Signed: 04/13/2021 12:03 AM Workstation Name: [id number]
[2021-04-13] MEDS: SODIUM CHLORIDE 0.9% 1000 ML 1,000 ML IV SCH ×2 (05:27→19:07)
[2021-04-13] MEDS: HEPARIN 5,000 UNIT/1 ML VIAL SUB-Q SCH ×3 (05:28→22:49)
[2021-04-13] MEDS: LEVOTHYROXINE 25 MCG TAB PO SCH (05:28)
--- NOTE | 2021-04-13 08:19 | Progress Note ---
Assessment and Plan Assessment and plan: (1) Syncope Current Visit: Yes Status: Acute Plan to address problem: Admit the patient to the medical telemetry. Aspirin 81 mg p.o. daily. Lipitor 40 mg p.o. daily. Normal saline at the rate of 100 cc/h. We will do the serial cardiac enzyme. We also do echocardiogram. We will monitor the patient closely. Will consult cardiology for evaluation (2) Symptomatic bradycardia Current Visit: Yes Status: Acute Plan to address problem: Aspirin 81 mg p.o. daily. Lipitor 40 mg p.o. daily. Normal saline at the rate of 100 cc/h. We will do the serial cardiac enzyme. We also do echocardiogram. We will monitor the patient closely. Will consult cardiology for evaluation (3) Dementia Current Visit: Yes Status: Acute Plan to address problem: Patient is on Namenda 10 mg p.o. twice daily and Exelon patch. We will monitor the patient closely (4) Hypothyroidism Current Visit: Yes Status: Acute Plan to address problem: Levothyroxine 25 mcg p.o. daily. We will check the TSH. Outpatient follow-up with endocrinology. (5) DVT prophylaxis Current Visit: Yes Status: Acute Plan to address problem: Heparin 5000 units subcu every 8 hours for DVT prophylaxis. Protonix 40 mg p.o. daily for GI prophylaxis. Patient is a full code 04/13/21 Patient presented with syncope, has symptomatic bradycardia. Cardiology consulted to see. Check FT4, Mg, Phos History Interval history: Patient presented with syncope Has bradycardia Hospitalist Physical - Physical exam Narrative exam: Gen: Not in acute distress, lying in bed HEENT: Normocephalic, atraumatic Neck : supple, no JVD Heart:S1 and S2 reg, no murmurs, rubs or gallop Lungs: clear to auscultation bilaterally, no wheeze Abd: Soft , non tender, non distended, normal bowel sounds Ext: No edema, no clubbing, no cyanosis Neuro: Awake, alert, oriented, moves all ext - Constitutional Vitals: Temp Pulse Resp BP Pulse Ox 97.8 F 54 L 18 125/71 94 04/13/21 04:38 04/13/21 04:38 04/13/21 04:38 04/13/21 06:16 04/13/21 04:38 General appearance: Present: no acute distress, well-nourished HEART Score - HEART Score Troponin: Troponin T < 0.010 ng/mL (0.00-0.029) 04/13/21 06:00 Results - Labs CBC & Chem 7: 04/12/21 22:43 04/12/21 22:43 Labs: Laboratory Last Values WBC 6.0 K/mm3 (4.5-11.0) 04/12/21 22:43 RBC 4.38 M/mm3 (3.65-5.03) 04/12/21 22:43 Hgb 13.3 gm/dl (11.8-15.2) 04/12/21 22:43 Hct 40.0 % (35.5-45.6) 04/12/21 22:43 MCV 91 fl (84-94) 04/12/21 22:43 MCH 30 pg (28-32) 04/12/21 22:43 MCHC 33 % (32-34) 04/12/21 22:43 RDW 13.6 % (13.2-15.2) 04/12/21 22:43 Plt Count 171 K/mm3 (140-440) 04/12/21 22:43 Lymph % (Auto) 35.4 % (13.4-35.0) H 04/12/21 22:43 [place] % (Auto) 9.4 % (0.0-7.3) H 04/12/21 22:43 Eos % (Auto) 2.9 % (0.0-4.3) 04/12/21 22:43 Baso % (Auto) 0.5 % (0.0-1.8) 04/12/21 22:43 Lymph # (Auto) 2.1 K/mm3 (1.2-5.4) 04/12/21 22:43 [place] # (Auto) 0.6 K/mm3 (0.0-0.8) 04/12/21 22:43 Eos # (Auto) 0.2 K/mm3 (0.0-0.4) 04/12/21 22:43 Baso # (Auto) 0.0 K/mm3 (0.0-0.1) 04/12/21 22:43 Seg Neutrophils % 51.8 % (40.0-70.0) 04/12/21 22:43 Seg Neutrophils # 3.1 K/mm3 (1.8-7.7) 04/12/21 22:43 Sodium 140 mmol/L (137-145) 04/12/21 22:43 Potassium 4.0 mmol/L (3.6-5.0) 04/12/21 22:43 Chloride 107.2 mmol/L (98-107) H 04/12/21 22:43 Carbon Dioxide 26 mmol/L (22-30) 04/12/21 22:43 Anion Gap 11 mmol/L 04/12/21 22:43 BUN 29 mg/dL (9-20) H 04/12/21 22:43 Creatinine 0.9 mg/dL (0.8-1.3) 04/12/21 22:43 Estimated GFR > 60 ml/min 04/12/21 22:43 BUN/Creatinine Ratio 32 % 04/12/21 22:43 Glucose 78 mg/dL (75-100) 04/12/21 22:43 Calcium 8.2 mg/dL (8.4-10.2) L 04/12/21 22:43 Total Bilirubin 0.30 mg/dL (0.1-1.2) 04/12/21 14:25 AST 14 units/L (5-40) 04/12/21 14:25 ALT 12 units/L (7-56) 04/12/21 14:25 Alkaline Phosphatase 79 units/L (35-129) 04/12/21 14:25 Ammonia 18.0 umol/L (25-60) L 04/12/21 18:18 Troponin T < 0.010 ng/mL (0.00-0.029) 04/13/21 06:00 Total Protein 6.6 g/dL (6.3-8.2) 04/12/21 14:25 Albumin 4.2 g/dL (3.9-5) 04/12/21 14:25 Albumin/Globulin Ratio 1.8 % 04/12/21 14:25 TSH 2.900 mlU/mL (0.270-4.200) 04/12/21 18:18 Urine Color Yellow (Yellow) 04/12/21 22:12 Urine Turbidity Clear (Clear) 04/12/21 22:12 Urine pH 5.0 (5.0-7.0) 04/12/21 22:12 Ur Specific [place] 1.024 (1.003-1.030) 04/12/21 22:12 Urine Protein <15 mg/dl mg/dL (Negative) 04/12/21 22:12 Urine Glucose (UA) Neg mg/dL (Negative) 04/12/21 22:12 Urine Ketones Neg mg/dL (Negative) 04/12/21 22:12 Urine Blood Neg (Negative) 04/12/21 22:12 Urine Nitrite Neg (Negative) 04/12/21 22:12 Urine Bilirubin Neg (Negative) 04/12/21 22:12 Urine Urobilinogen 2.0 mg/dL (<2.0) 04/12/21 22:12 Ur Leukocyte Esterase Neg (Negative) 04/12/21 22:12 Urine WBC (Auto) 1.0 /HPF (0.0-6.0) 04/12/21 22:12 Urine RBC (Auto) < 1.0 /HPF (0.0-6.0) 04/12/21 22:12 U Epithel Cells (Auto) < 1.0 /HPF (0-13.0) 04/12/21 22:12 Urine Mucus Few /HPF 04/12/21 22:12 Mixon/IV: Voiding Method Urinal Active Medications - Current Medications Current Medications: Generic Name Dose Route Start Last Admin Trade Name Freq PRN Reason Stop Dose Admin Acetaminophen 650 mg 04/12/21 22:17 Acetaminophen 325 Mg Tab PO Q6H PRN Pain, Mild (1-3) Aspirin 81 mg 04/13/21 10:00 Aspirin 81 Mg Tab Chew PO QDAY [facility] Atorvastatin Calcium 40 mg 04/13/21 22:00 Atorvastatin 40 Mg Tab PO QHS DEBBIE Docusate Sodium 100 mg 04/13/21 10:00 Docusate Sodium 100 Mg Cap PO DAILY DEBBIE Gabapentin 300 mg 04/13/21 10:00 Gabapentin 300 Mg Cap PO QDAY DEBBIE Heparin Sodium (Porcine) 5,000 unit 04/13/21 06:00 04/13/21 05:28 Heparin 5,000 Unit/1 Ml Vial SUB-Q 5,000 unit Q8HR DEBBIE Administration Sodium Chloride 1,000 mls @ 100 mls/hr 04/12/21 22:30 04/13/21 05:27 Nacl 0.9% 1000 Ml IV 100 mls/hr DIRECT DEBBIE Administration Latanoprost 1 drops 04/13/21 18:00 Latanoprost 0.005% Ophth Soln 2.5 Ml OU QPM [facility] Levothyroxine Sodium 25 mcg 04/13/21 06:00 04/13/21 05:28 Levothyroxine 25 Mcg Tab PO 25 mcg DAILY@0600 [facility] Administration Memantine 10 mg 04/13/21 10:00 Memantine 10 Mg Tab PO BID [facility] Morphine Sulfate 2 mg 04/12/21 22:17 Morphine 4 Mg/1 Ml Inj IV Q5MIN PRN Chest Pain Nitroglycerin 0.4 mg 04/12/21 22:17 Nitroglycerin 0.4 Mg Tab Subl SL Q5M PRN Chest Pain Pantoprazole Sodium 40 mg 04/13/21 10:00 Pantoprazole 40 Mg Tab PO QDAY [facility] Rivastigmine 9.5 mg 04/13/21 10:00 Rivastigmine 9.5 Mg/24 Hr Patch TD QDAY [facility] Sodium Chloride 10 ml 04/12/21 22:17 Sodium Chloride 0.9% 10 Ml Flush Syringe IV PRN PRN LINE FLUSH Tamsulosin HCl 0.4 mg 04/13/21 10:00 Tamsulosin 0.4 Mg Cap PO QDAY [facility] Tramadol HCl 50 mg 04/12/21 22:17 Tramadol 50 Mg Tab PO Q6H PRN Pain, Moderate (4-6)
[2021-04-13] MEDS ORDERED: TRAVOPROST OP SCH (10:00)
[2021-04-13] MEDS ORDERED: RIVASTIGMINE 9.5 MG/24 HR PATCH TD SCH (10:00)
[2021-04-13] MEDS ORDERED: DOCUSATE SODIUM 100 MG PO SCH (10:00)
[2021-04-13] MEDS ORDERED: LEVOTHYROXINE 25 MCG PO SCH (10:00)
[2021-04-13] MEDS ORDERED: ASPIRIN 81 MG TAB CHEW PO SCH (10:00)
[2021-04-13] MEDS ORDERED: PANTOPRAZOLE 40 MG TAB PO SCH (10:00)
[2021-04-13] MEDS ORDERED: NON-FORMULARY EACH (Gabapentin 300 MG) PO SCH (10:00)
[2021-04-13] MEDS ORDERED: NAMENDA 10 MG PO SCH (10:00)
[2021-04-13] MEDS: DOCUSATE SODIUM 100 MG CAP PO SCH (10:53)
[2021-04-13] MEDS: TAMSULOSIN 0.4 MG CAP PO SCH (10:53)
[2021-04-13] MEDS: GABAPENTIN 300 MG CAP PO SCH (10:53)
[2021-04-13] MEDS: MEMANTINE 10 MG TAB PO SCH ×2 (10:54→22:50)
--- NOTE | 2021-04-13 12:50 | Consultation ---
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 Patient reports he currently feels well, is awake, and has no complaints. He denies any fever, chest pain, shortness of breath, nausea, vomiting, dizzyness, lightheadedness, or episodes of passing out. However report from his personal fci is that he did have episode of syncope while using the restroom. He was noted to have sinus bradycardia with heart rates in the 40s-50s in ED and has been admitted for further evaluation and treatment. Telemetry monitoring since admission has revealed mostly heart rates in the 50s and 60s with sinus rhythm since admission. ECG reveals sinus bradycardia at 45 bpm with first degree AV block. Past History Past Medical History: hypothyroidism, other (Dementia BPH, cataract, Korsakoff syndrome) Social history: denies: smoking Medications and Allergies Allergies Allergy/AdvReac Type Severity Reaction Status Date / Time No Known Allergies Allergy Verified 04/12/21 17:54 Home Medications Medication Instructions Recorded Confirmed Last Taken Type Gabapentin 300 mg PO QDAY 12/24/15 04/13/21 2 Days Ago History ~04/11/21 Levothyroxine 25 mcg PO QDAY 12/24/15 04/13/21 2 Days Ago History ~04/11/21 Namenda 10 mg PO BID 12/24/15 04/13/21 2 Days Ago History ~04/11/21 Rivastigmine [Exelon Patch 9.5 mg TRANSDERMA QDAY 12/24/15 04/13/21 2 Days Ago History 9.5mg/24hr] ~04/11/21 Tamsulosin [Flomax] 0.4 mg PO QDAY 12/24/15 04/13/21 2 Days Ago History ~04/11/21 Docusate Sodium [Stool Softener] 100 mg PO DAILY 08/06/17 04/13/21 2 Days Ago History ~04/11/21 Travoprost (Nf) [Travatan Z] 5 ml OP DAILY 08/06/17 04/13/21 2 Days Ago History ~04/11/21 Loperamide [Imodium] 2 mg PO Q2HR #20 capsule 08/07/17 04/13/21 2 Days Ago Rx ~04/11/21 Active Meds: Active Medications Acetaminophen (Acetaminophen 325 Mg Tab) 650 mg PO Q6H PRN PRN Reason: Pain, Mild (1-3) Aspirin (Aspirin 81 Mg Tab Chew) 81 mg PO QDAY [facility] Last Admin: 04/13/21 10:53 Dose: 81 mg Documented by: Atorvastatin Calcium (Atorvastatin 40 Mg Tab) 40 mg PO QHS [facility] Docusate Sodium (Docusate Sodium 100 Mg Cap) 100 mg PO DAILY [facility] Last Admin: 04/13/21 10:53 Dose: 100 mg Documented by: Gabapentin (Gabapentin 300 Mg Cap) 300 mg PO QDAY [facility] Last Admin: 04/13/21 10:53 Dose: 300 mg Documented by: Heparin Sodium (Porcine) (Heparin 5,000 Unit/1 Ml Vial) 5,000 unit SUB-Q Q8HR S Last Admin: 04/13/21 05:28 Dose: 5,000 unit Documented by: Sodium Chloride (Nacl 0.9% 1000 Ml) 1,000 mls @ 100 mls/hr IV DIRECT [facility] Last Admin: 04/13/21 05:27 Dose: 100 mls/hr Documented by: Latanoprost (Latanoprost 0.005% Ophth Soln 2.5 Ml) 1 drops OU QPM [facility] Levothyroxine Sodium (Levothyroxine 25 Mcg Tab) 25 mcg PO DAILY@0600 [facility] Last Admin: 04/13/21 05:28 Dose: 25 mcg Documented by: Memantine (Memantine 10 Mg Tab) 10 mg PO BID [facility] Last Admin: 04/13/21 10:54 Dose: 10 mg Documented by: Morphine Sulfate (Morphine 4 Mg/1 Ml Inj) 2 mg IV Q5MIN PRN PRN Reason: Chest Pain Nitroglycerin (Nitroglycerin 0.4 Mg Tab Subl) 0.4 mg SL Q5M PRN PRN Reason: Chest Pain Pantoprazole Sodium (Pantoprazole 40 Mg Tab) 40 mg PO QDAY [facility] Last Admin: 04/13/21 10:53 Dose: 40 mg Documented by: Sodium Chloride (Sodium Chloride 0.9% 10 Ml Flush Syringe) 10 ml IV PRN PRN PRN Reason: LINE FLUSH Last Admin: 04/13/21 10:54 Dose: 10 ml Documented by: Tamsulosin HCl (Tamsulosin 0.4 Mg Cap) 0.4 mg PO QDAY DEBBIE Last Admin: 04/13/21 10:53 Dose: 0.4 mg Documented by: Tramadol HCl (Tramadol 50 Mg Tab) 50 mg PO Q6H PRN PRN Reason: Pain, Moderate (4-6) Review of Systems All systems: negative (per hpi) Physical Examination Vital Signs Temp Pulse Resp BP Pulse Ox 98.3 F 56 L 16 116/68 94 04/12/21 12:53 04/12/21 12:53 04/12/21 12:53 04/12/21 12:53 04/12/21 12:53 General appearance: no acute distress HEENT: Positive: EOMI Cardiac: Positive: Reg Rate and Rhythm Lungs: Positive: clear to auscultation, Normal Breath Sounds Abdomen: Positive: Soft, Active Bowel Sounds Results 04/12/21 22:43 04/12/21 22:43 Cardiac Enzymes 04/12/21 Range/Units 14:25 AST 14 (5-40) units/L CBC 04/12/21 04/12/21 Range/Units 14:25 22:43 WBC 6.7 6.0 (4.5-11.0) K/mm3 RBC 4.50 4.38 (3.65-5.03) M/mm3 Hgb 13.9 13.3 (11.8-15.2) gm/dl Hct 40.8 40.0 (35.5-45.6) % Plt Count 198 171 (140-440) K/mm3 Lymph # (Auto) 1.9 2.1 (1.2-5.4) K/mm3 [place] # (Auto) 0.6 0.6 (0.0-0.8) K/mm3 Eos # (Auto) 0.2 0.2 (0.0-0.4) K/mm3 Baso # (Auto) 0.0 0.0 (0.0-0.1) K/mm3 Comprehensive Metabolic Panel 04/12/21 04/12/21 Range/Units 14:25 22:43 Sodium 141 140 (137-145) mmol/L Potassium 4.6 4.0 (3.6-5.0) mmol/L Chloride 108.3 H 107.2 H (98-107) mmol/L Carbon Dioxide 25 26 (22-30) mmol/L BUN 31 H 29 H (9-20) mg/dL Creatinine 1.0 0.9 (0.8-1.3) mg/dL Glucose 88 78 (75-100) mg/dL Calcium 8.6 8.2 L (8.4-10.2) mg/dL AST 14 (5-40) units/L ALT 12 (7-56) units/L Alkaline Phosphatase 79 (35-129) units/L Total Protein 6.6 (6.3-8.2) g/dL Albumin 4.2 (3.9-5) g/dL Assessment and Plan 1. Sinus bradycardia 2. Weakness and possible syncope 3. Dementia Recommend: He is on Exelon patch which is known to cause and/or exacerbate bradyarrhythmias. I recommend stopping this medication (unless it is considered absolutely essential) and monitoring heart rhythm for next 48 hours. He will n ot need pacemaker if his heart rate is mostly in the 50s or higher while awake (lower heart rates while sleeping are acceptable). Check Echocardiogram.
[2021-04-13] MEDS: LATANOPROST 0.005% OPHTH SOLN 2.5 ML OU SCH (19:07)
[2021-04-14] MEDS: LEVOTHYROXINE 25 MCG TAB PO SCH (06:25)
[2021-04-14] MEDS: HEPARIN 5,000 UNIT/1 ML VIAL SUB-Q SCH ×3 (06:25→22:55)
--- NOTE | 2021-04-14 09:09 | Progress Note ---
Assessment and Plan Assessment and plan: (1) Syncope Current Visit: Yes Status: Acute Plan to address problem: Admit the patient to the medical telemetry. Aspirin 81 mg p.o. daily. Lipitor 40 mg p.o. daily. Normal saline at the rate of 100 cc/h. We will do the serial cardiac enzyme. We also do echocardiogram. We will monitor the patient closely. Will consult cardiology for evaluation (2) Symptomatic bradycardia Current Visit: Yes Status: Acute Plan to address problem: Aspirin 81 mg p.o. daily. Lipitor 40 mg p.o. daily. Normal saline at the rate of 100 cc/h. We will do the serial cardiac enzyme. We also do echocardiogram. We will monitor the patient closely. Will consult cardiology for evaluation (3) Dementia Current Visit: Yes Status: Acute Plan to address problem: Patient is on Namenda 10 mg p.o. twice daily and Exelon patch. We will monitor the patient closely (4) Hypothyroidism Current Visit: Yes Status: Acute Plan to address problem: Levothyroxine 25 mcg p.o. daily. We will check the TSH. Outpatient follow-up with endocrinology. (5) DVT prophylaxis Current Visit: Yes Status: Acute Plan to address problem: Heparin 5000 units subcu every 8 hours for DVT prophylaxis. Protonix 40 mg p.o. daily for GI prophylaxis. Patient is a full code 04/13/21 Patient presented with syncope, has symptomatic bradycardia. Cardiology consulted to see. Check FT4, Mg, Phos 04/14/21 patient presented with syncope , had symptomatic bradycardia. He was on Exelon p atch which was discontinued by Cardiology. HR improving 59. Likely dc home tomorrow and follow with cardiology as outpatient if heart rate stays above 60s. History Interval history: Patient presented with syncope Has bradycardia Hospitalist Physical - Physical exam Narrative exam: Gen: Not in acute distress, lying in bed HEENT: Normocephalic, atraumatic Neck : supple, no JVD Heart:S1 and S2 reg, no murmurs, rubs or gallop Lungs: clear to auscultation bilaterally, no wheeze Abd: Soft , non tender, non distended, normal bowel sounds Ext: No edema, no clubbing, no cyanosis Neuro: Awake, alert, oriented, moves all ext - Constitutional Vitals: Temp Pulse Resp BP Pulse Ox 97.3 F L 60 16 128/71 93 08/02/21 06:31 04/14/21 06:31 04/14/21 06:31 04/14/21 06:31 04/14/21 06:31 General appearance: Present: no acute distress HEART Score - HEART Score Troponin: Troponin T < 0.010 ng/mL (0.00-0.029) 04/13/21 06:00 Results - Labs CBC & Chem 7: 04/12/21 22:43 04/12/21 22:43 Labs: Laboratory Last Values WBC 6.0 K/mm3 (4.5-11.0) 04/12/21 22:43 RBC 4.38 M/mm3 (3.65-5.03) 04/12/21 22:43 Hgb 13.3 gm/dl (11.8-15.2) 04/12/21 22:43 Hct 40.0 % (35.5-45.6) 04/12/21 22:43 MCV 91 fl (84-94) 04/12/21 22:43 MCH 30 pg (28-32) 04/12/21 22:43 MCHC 33 % (32-34) 04/12/21 22:43 RDW 13.6 % (13.2-15.2) 04/12/21 22:43 Plt Count 171 K/mm3 (140-440) 04/12/21 22:43 Lymph % (Auto) 35.4 % (13.4-35.0) H 04/12/21 22:43 [place] % (Auto) 9.4 % (0.0-7.3) H 04/12/21 22:43 Eos % (Auto) 2.9 % (0.0-4.3) 04/12/21 22:43 Baso % (Auto) 0.5 % (0.0-1.8) 04/12/21 22:43 Lymph # (Auto) 2.1 K/mm3 (1.2-5.4) 04/12/21 22:43 [place] # (Auto) 0.6 K/mm3 (0.0-0.8) 04/12/21 22:43 Eos # (Auto) 0.2 K/mm3 (0.0-0.4) 04/12/21 22:43 Baso # (Auto) 0.0 K/mm3 (0.0-0.1) 04/12/21 22:43 Seg Neutrophils % 51.8 % (40.0-70.0) 04/12/21 22:43 Seg Neutrophils # 3.1 K/mm3 (1.8-7.7) 04/12/21 22:43 Sodium 140 mmol/L (137-145) 04/12/21 22:43 Potassium 4.0 mmol/L (3.6-5.0) 04/12/21 22:43 Chloride 107.2 mmol/L (98-107) H 04/12/21 22:43 Carbon Dioxide 26 mmol/L (22-30) 04/12/21 22:43 Anion Gap 11 mmol/L 04/12/21 22:43 BUN 29 mg/dL (9-20) H 04/12/21 22:43 Creatinine 0.9 mg/dL (0.8-1.3) 04/12/21 22:43 Estimated GFR > 60 ml/min 04/12/21 22:43 BUN/Creatinine Ratio 32 % 04/12/21 22:43 Glucose 78 mg/dL (75-100) 04/12/21 22:43 Calcium 8.2 mg/dL (8.4-10.2) L 04/12/21 22:43 Phosphorus 2.60 mg/dL (2.5-4.5) 04/13/21 10:50 Magnesium 2.10 mg/dL (1.7-2.3) 04/13/21 10:50 Total Bilirubin 0.30 mg/dL (0.1-1.2) 04/12/21 14:25 AST 14 units/L (5-40) 04/12/21 14:25 ALT 12 units/L (7-56) 04/12/21 14:25 Alkaline Phosphatase 79 units/L (35-129) 04/12/21 14:25 Ammonia 18.0 umol/L (25-60) L 04/12/21 18:18 Troponin T < 0.010 ng/mL (0.00-0.029) 04/13/21 06:00 Total Protein 6.6 g/dL (6.3-8.2) 04/12/21 14:25 Albumin 4.2 g/dL (3.9-5) 04/12/21 14:25 Albumin/Globulin Ratio 1.8 % 04/12/21 14:25 TSH 2.900 mlU/mL (0.270-4.200) 04/12/21 18:18 Free T4 1.12 ng/dL (0.76-1.46) 04/13/21 10:50 Urine Color Yellow (Yellow) 04/12/21 22:12 Urine Turbidity Clear (Clear) 04/12/21 22:12 Urine pH 5.0 (5.0-7.0) 04/12/21 22:12 Ur Specific [place] 1.024 (1.003-1.030) 04/12/21 22:12 Urine Protein <15 mg/dl mg/dL (Negative) 04/12/21 22:12 Urine Glucose (UA) Neg mg/dL (Negative) 04/12/21 22:12 Urine Ketones Neg mg/dL (Negative) 04/12/21 22:12 Urine Blood Neg (Negative) 04/12/21 22:12 Urine Nitrite Neg (Negative) 04/12/21 22:12 Urine Bilirubin Neg (Negative) 04/12/21 22:12 Urine Urobilinogen 2.0 mg/dL (<2.0) 04/12/21 22:12 Ur Leukocyte Esterase Neg (Negative) 04/12/21 22:12 Urine WBC (Auto) 1.0 /HPF (0.0-6.0) 04/12/21 22:12 Urine RBC (Auto) < 1.0 /HPF (0.0-6.0) 04/12/21 22:12 U Epithel Cells (Auto) < 1.0 /HPF (0-13.0) 04/12/21 22:12 Urine Mucus Few /HPF 04/12/21 22:12 Mixon/IV: Voiding Method Urinal Active Medications - Current Medications Current Medications: Generic Name Dose Route Start Last Admin Trade Name Freq PRN Reason Stop Dose Admin Docusate Sodium 100 mg 04/13/21 10:00 04/13/21 10:53 Docusate Sodium 100 Mg Cap PO 100 mg DAILY DEBBIE Administration Gabapentin 300 mg 04/13/21 10:00 04/13/21 10:53 Gabapentin 300 Mg Cap PO 300 mg QDAY DEBBIE Administration Heparin Sodium (Porcine) 5,000 unit 04/13/21 06:00 04/14/21 06:25 Heparin 5,000 Unit/1 Ml Vial SUB-Q 5,000 unit Q8HR DEBBIE Administration Latanoprost 1 drops 04/13/21 18:00 04/13/21 19:07 Latanoprost 0.005% Ophth Soln 2.5 Ml OU 1 drops QPM DEBBIE Administration Levothyroxine Sodium 25 mcg 04/13/21 06:00 04/14/21 06:25 Levothyroxine 25 Mcg Tab PO 25 mcg DAILY@0600 DEBBIE Administration Memantine 10 mg 04/13/21 10:00 04/13/21 22:50 Memantine 10 Mg Tab PO 10 mg BID DEBBIE Administration Tamsulosin HCl 0.4 mg 04/13/21 10:00 04/13/21 10:53 Tamsulosin 0.4 Mg Cap PO 0.4 mg QDAY DEBBIE Administration
[2021-04-14] MEDS: DOCUSATE SODIUM 100 MG CAP PO SCH (09:11)
[2021-04-14] MEDS: MEMANTINE 10 MG TAB PO SCH ×2 (09:11→22:55)
[2021-04-14] MEDS: TAMSULOSIN 0.4 MG CAP PO SCH (09:11)
[2021-04-14] MEDS: GABAPENTIN 300 MG CAP PO SCH (09:12)
--- NOTE | 2021-04-14 10:38 | Electrocardiograph Report ---
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
--- NOTE | 2021-04-14 12:36 | Progress Note ---
Assessment and Plan - Patient Problems (1) Bradycardia Current Visit: Yes Status: Acute Plan to address problem: Patient presented with altered mental status, did not appear that his symptoms were related to a finding of sinus bradycardia. His sinus rate has increased currently to low normal limits in the high 50s and low 60s. TSH was normal at 2.9. Echocardiogram shows well-preserved left ventricular systolic function with ejection fraction 50 to 55%. We recommend avoid AV luke blocking agents, including the removal of an Exelon patch. Otherwise, conservative monitoring of underlying heart rate, and outpatient follow-up with electrophysiology. Subjective Date of service: 04/14/21 Interval history: Patient is comfortable, no cardiac complaints, looks and feels better. His heart rate today is 59. Objective Vital Signs Temp Pulse Pulse Resp BP BP Pulse Ox 04/14/21 10:00 56 L 17 99 04/14/21 09:10 97.5 F L 59 L 18 123/70 96 04/14/21 06:31 97.3 F L 60 16 128/71 93 04/14/21 03:00 60 04/14/21 00:47 97.3 F L 63 18 114/64 92 04/13/21 22:19 57 L 18 99 04/13/21 20:46 97.4 F L 55 L 16 113/61 94 04/13/21 18:07 98.6 F 63 18 106/63 96 04/13/21 12:54 18 99 - Physical Examination General: No Apparent Distress HEENT: Positive: EOMI Neck: Positive: neck supple Cardiac: Positive: Regular Rhythm Lungs: Positive: Decreased Breath Sounds Neuro: Positive: Grossly Intact Abdomen: Positive: Soft, Active Bowel Sounds Skin: Positive: Clear Extremities: Absent: edema
--- NOTE | 2021-04-14 12:48 | Electrocardiograph Report ---
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
[2021-04-14] MEDS: LATANOPROST 0.005% OPHTH SOLN 2.5 ML OU SCH (17:35)
[2021-04-15] MEDS: LEVOTHYROXINE 25 MCG TAB PO SCH (06:57)
[2021-04-15] MEDS: HEPARIN 5,000 UNIT/1 ML VIAL SUB-Q SCH ×3 (06:57→21:52)
--- NOTE | 2021-04-15 09:08 | Progress Note ---
Assessment and Plan Sinus bradycardia TSH was normal at 2.9. Echocardiogram shows well-preserved left ventricular systolic function with ejection fraction 50-55%. Altered mental status Recommendation Avoid AV luke blocking agents, including the removal of an Exelon patch. Otherwise, conservative monitoring of underlying heart rate, and outpatient fol low-up with electrophysiology. Subjective Date of service: 04/15/21 Interval history: Patient is alert, resting in bed comfortably. No cardiac complaints. Currently he is sinus rhythm, rate 61 on telemetry. Objective Vital Signs Temp Pulse Pulse Pulse Resp BP BP 04/15/21 08:28 54 L 16 04/15/21 07:29 98.0 F 59 L 18 118/65 04/15/21 03:53 98.2 F 56 L 16 101/57 04/15/21 03:00 60 04/14/21 23:17 97.7 F 60 17 94/45 04/14/21 22:00 55 L 55 L 18 04/14/21 19:14 97.5 F L 55 L 14 118/68 04/14/21 19:00 55 L 04/14/21 16:20 98.2 F 63 17 110/62 04/14/21 13:25 97.8 F 61 17 122/68 04/14/21 11:00 67 04/14/21 10:00 56 L 17 04/14/21 09:10 97.5 F L 59 L 18 123/70 Pulse Ox 04/15/21 08:28 99 04/15/21 07:29 94 04/15/21 03:53 91 04/15/21 03:00 04/14/21 23:17 93 04/14/21 22:00 99 04/14/21 19:14 90 04/14/21 19:00 04/14/21 16:20 97 04/14/21 13:25 97 04/14/21 11:00 04/14/21 10:00 99 04/14/21 09:10 96 - Physical Examination General: No Apparent Distress HEENT: Positive: EOMI Neck: Positive: neck supple Cardiac: Positive: Reg Rate and Rhythm Lungs: Positive: Decreased Breath Sounds Neuro: Positive: Grossly Intact Extremities: Absent: edema
[2021-04-15] MEDS: TAMSULOSIN 0.4 MG CAP PO SCH (09:15)
[2021-04-15] MEDS: DOCUSATE SODIUM 100 MG CAP PO SCH (09:15)
[2021-04-15] MEDS: GABAPENTIN 300 MG CAP PO SCH (09:15)
[2021-04-15] MEDS: MEMANTINE 10 MG TAB PO SCH ×2 (09:15→21:52)
--- NOTE | 2021-04-15 14:26 | Discharge Summary ---
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 In the emergency room patient heart rate ranging from 42/43-59. Patient was admitted to the hospital for further evaluation and management. Cardiology was consulted. 2D echo showed preserved EF. Cardiology recommended to avoid AV luke blocking agents including removal of Exelon patch which patient was taking for history of dementia. Patient was also recommended for conservative medical management and outpatient follow-up with electrophysiology. Patient was evaluated by physical therapy and was discharged back to [facility] in stable condition. Disposition: [id number] HOME [facility] Final Discharge Diagnosis (Prints w/discharge instructions): --Syncopal episode likely due to bradycardia. --Sinus bradycardia likely due to medication induced, TSH and 2D echocardiogram was normal. --History of dementia. --Hypothyroidism. --History of BPH Time spent for discharge: 34 minutes Core Measure Documentation - Palliative Care Palliative Care/ Comfort Measures: Not Applicable - Core Measures Any of the following diagnoses?: none Exam - Physical Exam Narrative exam: Gen: Not in acute distress, white male lying in bed HEENT: Normocephalic, atraumatic Neck : supple, no JVD Heart:S1 and S2 reg, no murmurs, rubs or gallop Lungs: clear to auscultation bilaterally, no wheeze Abd: Soft , non tender, non distended, normal bowel sounds Ext: No edema, no clubbing, no cyanosis Neuro: Awake, alert, oriented, moves all extremities - Constitutional Vitals: Temp Pulse Resp BP Pulse Ox 98.2 F 60 18 107/61 93 04/15/21 11:24 04/15/21 11:24 04/15/21 11:24 04/15/21 11:24 04/15/21 11:24 Plan Activity: advance as tolerated, fall precautions Diet: low fat Additional Instructions: Follow-up with electrophysiology in 1 to 2 weeks Follow up with: BENJIE VELASCO MD [Primary Care Provider] - 3-5 Days NADIA BUSTILLOS MD [Staff Physician] - 7 Days
[2021-04-15] MEDS: LATANOPROST 0.005% OPHTH SOLN 2.5 ML OU SCH (17:00)
[2021-04-16] MEDS: HEPARIN 5,000 UNIT/1 ML VIAL SUB-Q SCH ×4 (06:48→22:34)
[2021-04-16] MEDS: LEVOTHYROXINE 25 MCG TAB PO SCH (06:48)
[2021-04-16] MEDS: MEMANTINE 10 MG TAB PO SCH ×2 (09:06→22:34)
[2021-04-16] MEDS: TAMSULOSIN 0.4 MG CAP PO SCH (09:06)
[2021-04-16] MEDS: GABAPENTIN 300 MG CAP PO SCH (09:06)
[2021-04-16] MEDS: DOCUSATE SODIUM 100 MG CAP PO SCH (09:06)
--- NOTE | 2021-04-16 09:55 | Event Note ---
Date: 04/15/21 After PT evaluation of the patient, patient was in room, belching, having syncopal episodes. Patient appeared disoriented and confused, unsteady while sitting on the bed. We will continue to monitor the patient and will discharge.
--- NOTE | 2021-04-16 11:04 | Progress Note ---
Assessment and Plan Sinus bradycardia TSH was normal at 2.9. Echocardiogram shows well-preserved left ventricular systolic function with ejection fraction 50-55%. Altered mental status Recommendation Avoid AV luke blocking agents, including the removal of an Exelon patch. Otherwise, conservative cardiac management and outpatient follow-up with [facility] ophysiology. Subjective Date of service: 04/16/21 Interval history: Patient is alert, resting in bed comfortably. No cardiac complaints. Objective Vital Signs Temp Pulse Pulse Pulse Resp BP BP 04/16/21 04:23 97.6 F 53 L 16 116/58 04/16/21 03:00 53 L 04/15/21 21:37 55 L 55 L 18 04/15/21 20:00 97.8 F 55 L 18 109/58 04/15/21 19:00 54 L 04/15/21 15:42 98.6 F 61 18 114/65 04/15/21 11:24 98.2 F 60 18 107/61 Pulse Ox 04/16/21 04:23 94 04/16/21 03:00 04/15/21 21:37 99 04/15/21 20:00 92 04/15/21 19:00 04/15/21 15:42 92 04/15/21 11:24 93 - Physical Examination General: No Apparent Distress HEENT: Positive: EOMI Neck: Positive: neck supple Cardiac: Positive: Bradycardia Lungs: Positive: Decreased Breath Sounds Neuro: Positive: Grossly Intact Abdomen: Positive: Soft, Active Bowel Sounds Skin: Positive: Clear Extremities: Absent: edema
--- NOTE | 2021-04-16 15:16 | Magnetic Resonance Report ---
MRI BRAIN WITHOUT CONTRAST INDICATION / CLINICAL INFORMATION: Recurrent syncope. TECHNIQUE: Multiplanar, multisequence MR images of the brain were obtained. COMPARISON: None available. FINDINGS: BRAIN / INTRACRANIAL CONTENTS: No acute ischemia, acute hemorrhage, mass effect, midline shift, or hy drocephalus. No chronic infarct. Mild global brain atrophy. Mild chronic small vessel schema change in the cerebral white matter. CRANIOCERVICAL JUNCTION: No significant abnormality. VASCULAR FLOW-VOIDS: No significant abnormality. ORBITS: No significant abnormality of visualized orbits. SINUSES / MASTOIDS: No significant abnormality of visualized sinuses and mastoid air cells. ADDITIONAL FINDINGS: None. IMPRESSION: 1. No acute findings or findings to explain the patient's symptoms. Signer Name: Bernardo Alvarado MD Signed: 04/16/2021 3:12 PM Workstation Name: [id number]
--- NOTE | 2021-04-16 15:44 | Progress Note ---
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 In the ER patient noted to have significant bradycardia, patient admitted to the hospital at medical telemetry and consulted cardiology. Assessment and plan: -- Syncope Unknown etiology: Most likely due to symptomatic bradycardia MRI without any acute process, initiated on meclizine Continue to monitor the patient at telemetry Continue aspirin 81 mg p.o. daily. Lipitor 40 mg p.o. daily. Normal saline at the rate of 100 cc/h. 2D echo with preserved EF, Consult neurology for further evaluation management -- Symptomatic bradycardia Aspirin 81 mg p.o. daily. Lipitor 40 mg p.o. daily. 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 twice daily and Exelon patch. Exelon patch is discontinued for bradycardia, we will monitor the patient closely -- Hypothyroidism Levothyroxine 25 mcg p.o. daily. Normal TSH. Outpatient follow-up with endocr inology. -- DVT prophylaxis Heparin 5000 units subcu every 8 hours for DVT prophylaxis. Protonix 40 mg p.o. daily for GI prophylaxis. --Patient is a full code Daily clinical course: 04/13/21 Patient presented with syncope, has symptomatic bradycardia. Cardiology consult ed to see. Check FT4, Mg, Phos 04/14/21 patient presented with syncope , had symptomatic bradycardia. He was on Exelon patch which was discontinued by Cardiology. HR improving 59. Likely dc home tomorrow and follow with cardiology as outpatient if heart rate stays above 60s. 04/15/21: pt with persistent lightheadedness and syncope during PT today, not stable for d/c. order brain MRI 04/16/21: MRI w/o any acute process. will order meclizine and will consult neurology. PT recommended subacute rehab. Subjective Date of service: 04/16/21 Interval history: Patient seen and examined. Medical records and medication list reviewed. No acute event overnight noted by the RN. Patient denies any chest pain or difficulty breathing. Patient is tolerating diet. Discussed plan of care at bedside with patient. PT recommended subacute rehab Objective - Exam Narrative Exam: Gen: Not in acute distress, white male lying in bed HEENT: Normocephalic, atraumatic Neck : supple, no JVD Heart:S1 and S2 reg, no murmurs, rubs or gallop Lungs: clear to auscultation bilaterally, no wheeze Abd: Soft , non tender, non distended, normal bowel sounds Ext: No edema, no clubbing, no cyanosis Neuro: Awake, alert, oriented, moves all extremities - Constitutional Vitals: Vital Signs - 12hr 04/16/21 04/16/21 04:23 09:00 Temperature 97.6 F Pulse Rate 53 L Respiratory 16 18 Rate Blood Pressure 116/58 O2 Sat by Pulse 94 99 Oximetry - Labs CBC & Chem 7: 04/12/21 22:43 04/12/21 22:43 HEART Score - HEART Score Troponin: Troponin T < 0.010 ng/mL (0.00-0.029) 04/13/21 06:00
[2021-04-16] MEDS: LATANOPROST 0.005% OPHTH SOLN 2.5 ML OU SCH (17:32)
[2021-04-17] MEDS: LEVOTHYROXINE 25 MCG TAB PO SCH (06:04)
[2021-04-17] MEDS: HEPARIN 5,000 UNIT/1 ML VIAL SUB-Q SCH ×3 (06:04→23:35)
--- NOTE | 2021-04-17 09:12 | Progress Note ---
Assessment and Plan Sinus bradycardia TSH was normal at 2.9. Echocardiogram shows well-preserved left ventricular systolic function with ejection fraction 50-55%. Altered mental status Recommendation Avoid AV luke blocking agents. Otherwise, conservative cardiac management and outpatient follow-up with electrophysiology. Subjective Date of service: 04/17/21 Interval history: Patient is alert, resting in bed comfortably. No cardiac complaints. Objective Vital Signs Temp Pulse Resp BP BP Pulse Ox 04/17/21 09:10 59 L 04/17/21 08:49 98.8 F 83 16 124/78 92 04/17/21 08:44 95 04/17/21 05:20 98.0 F 59 L 18 108/62 04/17/21 03:00 49 L 04/16/21 21:00 20 95 04/16/21 20:23 98.1 F 54 L 20 121/65 95 04/16/21 19:00 71 - Physical Examination General: No Apparent Distress HEENT: Positive: EOMI Neck: Positive: neck supple Cardiac: Positive: Reg Rate and Rhythm Lungs: Positive: Decreased Breath Sounds Neuro: Positive: Grossly Intact Abdomen: Positive: Soft, Active Bowel Sounds Extremities: Absent: edema
[2021-04-17] MEDS: GABAPENTIN 300 MG CAP PO SCH (10:17)
[2021-04-17] MEDS: TAMSULOSIN 0.4 MG CAP PO SCH (10:17)
[2021-04-17] MEDS: MEMANTINE 10 MG TAB PO SCH ×2 (10:17→23:35)
[2021-04-17] MEDS: DOCUSATE SODIUM 100 MG CAP PO SCH (10:18)
--- NOTE | 2021-04-17 11:10 | Consultation ---
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 Patient is currently AAO x2, to person and place but not time. Otherwise he is jovial, awake, and has no complaints. He denies any fever, chest pain, shortness of breath, nausea, vomiting. It does not appear that the patient received anything for the alleged complaints. 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 According to pt. he does not recall passing out , denied ever passing out he use walker for ambulation for some time ? with occasional fall as per pt. he denied Bowel or bladder problem ,he does not smoke or drink In the emergency room patient heart rate ranging from 42 43-59. Patient denies any chest pain no dizziness evaluated by cardiology Past History Past Medical History: hypothyroidism, other (Dementia BPH, cataract, Korsakoff syndrome) Medications and Allergies Allergies Allergy/AdvReac Type Severity Reaction Status Date / Time No Known Allergies Allergy Verified 04/12/21 17:54 Home Medications Medication Instructions Recorded Confirmed Last Taken Type Gabapentin 300 mg PO QDAY 12/24/15 08/06/17 Unknown History Levothyroxine 25 mcg PO QDAY 12/24/15 08/06/17 Unknown History Namenda 10 mg PO BID 12/24/15 08/06/17 Unknown History Rivastigmine [Exelon Patch 9.5 mg TRANSDERMA QDAY 12/24/15 08/06/17 Unknown History 9.5mg/24hr] Tamsulosin [Flomax] 0.4 mg PO QDAY 12/24/15 08/06/17 Unknown History Docusate Sodium [Stool Softener] 100 mg PO DAILY 08/06/17 08/06/17 Unknown History Travoprost (Nf) [Travatan Z] 5 ml OP DAILY 08/06/17 08/06/17 Unknown History Loperamide [Imodium] 2 mg PO Q2HR #20 capsule 08/07/17 Unknown Rx Active Meds: Active Medications Acetaminophen (Acetaminophen 325 Mg Tab) 650 mg PO Q6H PRN PRN Reason: Pain, Mild (1-3) Aspirin (Aspirin 81 Mg Tab Chew) 81 mg PO QDAY [facility] Atorvastatin Calcium (Atorvastatin 40 Mg Tab) 40 mg PO QHS [facility] Heparin Sodium (Porcine) (Heparin 5,000 Unit/1 Ml Vial) 5,000 unit SUB-Q Q8HR [facility] Sodium Chloride (Nacl 0.9% 1000 Ml) 1,000 mls @ 100 mls/hr IV DIRECT [facility] Miscellaneous Medication (Docusate Sodium [Stool Softener]) 100 mg PO DAILY [facility] Miscellaneous Medication (Gabapentin) 300 mg PO QDAY [facility] Miscellaneous Medication (Levothyroxine) 25 mcg PO QDAY [facility] Miscellaneous Medication (Namenda) 10 mg PO BID [facility] Miscellaneous Medication (Travoprost (Nf) [Travatan Z 0.004%]) 5 ml OP DAILY [facility] Morphine Sulfate (Morphine 4 Mg/1 Ml Inj) 2 mg IV Q5MIN PRN PRN Reason: Chest Pain Nitroglycerin (Nitroglycerin 0.4 Mg Tab Subl) 0.4 mg SL Q5M PRN PRN Reason: Chest Pain Pantoprazole Sodium (Pantoprazole 40 Mg Tab) 40 mg PO QDAY [facility] Rivastigmine (Rivastigmine 9.5 Mg/24 Hr Patch) 9.5 mg TD QDAY [facility] Sodium Chloride (Sodium Chloride 0.9% 10 Ml Flush Syringe) 10 ml IV PRN PRN PRN Reason: LINE FLUSH Tamsulosin HCl (Tamsulosin 0.4 Mg Cap) 0.4 mg PO QDAY [facility] Tramadol HCl (Tramadol 50 Mg Tab) 50 mg PO Q6H PRN PRN Reason: Pain, Moderate (4-6) Review of Systems Constitutional: weakness Cardiovascular: syncope Past History Past Medical History: hypothyroidism, other (Dementia BPH, cataract, Korsakoff syndrome) Social history: denies: smoking Medications and Allergies Allergies Allergy/AdvReac Type Severity Reaction Status Date / Time No Known Allergies Allergy Verified 04/12/21 17:54 Home Medications Medication Instructions Recorded Confirmed Last Taken Type Gabapentin 300 mg PO QDAY 12/24/15 04/13/21 2 Days Ago History ~04/11/21 Levothyroxine 25 mcg PO QDAY 12/24/15 04/13/21 2 Days Ago History ~04/11/21 Namenda 10 mg PO BID 12/24/15 04/13/21 2 Days Ago History ~04/11/21 Rivastigmine [Exelon Patch 9.5 mg TRANSDERMA QDAY 12/24/15 04/13/21 2 Days Ago History 9.5mg/24hr] ~04/11/21 Tamsulosin [Flomax] 0.4 mg PO QDAY 12/24/15 04/13/21 2 Days Ago History ~04/11/21 Docusate Sodium [Stool Softener] 100 mg PO DAILY 08/06/17 04/13/21 2 Days Ago History ~04/11/21 Travoprost (Nf) [Travatan Z] 5 ml OP DAILY 08/06/17 04/13/21 2 Days Ago History ~04/11/21 Loperamide [Imodium] 2 mg PO Q2HR #20 capsule 08/07/17 04/13/21 2 Days Ago Rx ~04/11/21 Active Meds: Active Medications Docusate Sodium (Docusate Sodium 100 Mg Cap) 100 mg PO DAILY [facility] Last Admin: 04/17/21 10:18 Dose: 100 mg Documented by: Gabapentin (Gabapentin 300 Mg Cap) 300 mg PO QDAY [facility] Last Admin: 04/17/21 10:17 Dose: 300 mg Documented by: Heparin Sodium (Porcine) (Heparin 5,000 Unit/1 Ml Vial) 5,000 unit SUB-Q Q8HR [facility] Last Admin: 04/17/21 06:04 Dose: 5,000 unit Documented by: Latanoprost (Latanoprost 0.005% Ophth Soln 2.5 Ml) 1 drops OU QPM [facility] Last Admin: 04/16/21 17:32 Dose: 1 drops Documented by: Levothyroxine Sodium (Levothyroxine 25 Mcg Tab) 25 mcg PO DAILY@0600 [facility] Last Admin: 04/17/21 06:04 Dose: 25 mcg Documented by: Meclizine HCl (Meclizine 12.5 Mg Tab) 12.5 mg PO Q12H [facility] Memantine (Memantine 10 Mg Tab) 10 mg PO BID [facility] Last Admin: 04/17/21 10:17 Dose: 10 mg Documented by: Tamsulosin HCl (Tamsulosin 0.4 Mg Cap) 0.4 mg PO QDAY [facility] Last Admin: 04/17/21 10:17 Dose: 0.4 mg Documented by: Physical Examination - Vital Signs Vital Signs: Vital Signs Temp Pulse Resp BP Pulse Ox 98.3 F 56 L 16 116/68 94 04/12/21 12:53 04/12/21 12:53 04/12/21 12:53 04/12/21 12:53 04/12/21 12:53 - Constitutional General appearance: comfortable - EENT EENT: Present: PERRL, mucous membranes moist - Respiratory Respiratory: Present: chest non-tender, lungs clear, rhonchi - Cardiovascular Cardiovascular: Present: regular rate, normal S1, normal S2 Extremities: Present: no peripheral edema bilatateraly, no clubbing, cyanosis - Gastrointestinal Gastrointestinal: Present: normoactive bowel sounds - Integumentary Integumentary: Present: normal - Neurologic Cranial nerve examination: PERRL, EOMI, intact Speech examination: intact Sensorimotor examination: intact, other (motor 4/5 bilteral may be slight left pronator drift , gait not done , reflexes are suppressed bilataeral no clonus planter is down going ) - Psychiatric Psychiatric: Present: other (he is oriented to place and remeber his birthdate and current president ,thinks previous president is [place] , cognitive function is impaired as well as calculation, ) Results - Laboratory Findings CBC and BMP: 04/12/21 22:43 04/12/21 22:43 Abnormal Lab Findings: Abnormal Labs 04/12/21 04/12/21 04/12/21 14:25 14:25 18:18 Lymph % (Auto) [place] % (Auto) 8.4 H Chloride 108.3 H BUN 31 H Calcium Ammonia 18.0 L 04/12/21 04/12/21 22:43 22:43 Lymph % (Auto) 35.4 H [place]le % (Auto) 9.4 H Chloride 107.2 H BUN 29 H Calcium 8.2 L Ammonia Assessment and Plan Assessment and Plan VTE prophylaxis?: Chemical - Patient Problems # Syncope? etiology not clear -pt. is bad historian -Seizure can not be excluded -Possible hypotension/dehydration with bradycardia contribute to condition -Admit the patient to the medical telemetry. - Aspirin 81 mg p.o. daily. - Lipitor 40 mg p.o. daily. - Normal saline at the rate of 100 cc/h. - serial cardiac enzyme is negative. We also do echocardiogram. We will monitor the patient closely. Will consult cardiology for evaluation -Echo with EF#50-55 -EEG is pending -MRI brain with gd -cardiac monitoring -check for orthostatic changes # Symptomatic bradycardia -Aspirin 81 mg p.o. daily. Lipitor 40 mg p.o. daily. Normal saline at the rate of 100 cc/h. -Agree on stop exelon patch -stop neurontine due to side effect of dizziness # Dementia -Patient is on Namenda 10 mg p.o. twice daily - Exelon patch. stop (4) Hypothyroidism -Levothyroxine 25 mcg p.o. daily. - We will check the TSH. Outpatient follow-up with endocrinology. (5) DVT prophylaxis -Heparin 5000 units subcu every 8 hours for DVT prophylaxis. - Protonix 40 mg p.o. daily for GI prophylaxis. - Patient is a full code will follow
[2021-04-17] MEDS ORDERED: MECLIZINE 12.5 MG TAB PO SCH (12:00)
--- NOTE | 2021-04-17 14:42 | Progress Note ---
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 In the ER patient noted to have significant bradycardia, patient admitted to the hospital at medical telemetry and consulted cardiology. Assessment and plan: -- Syncope Unknown etiology: Most likely due to symptomatic bradycardia Continue to monitor the patient at telemetry Continue aspirin 81 mg p.o. daily. Lipitor 40 mg p.o. daily. Normal saline at the rate of 100 cc/h. 2D echo with preserved EF, We will order MRI to rule out possible stroke -- Symptomatic bradycardia Aspirin 81 mg p.o. daily. Lipitor 40 mg p.o. daily. 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 twice daily and Exelon patch. Exelon patch is discontinued for bradycardia, we will monitor the patient closely -- Hypothyroidism Levothyroxine 25 mcg p.o. daily. Normal TSH. Outpatient follow-up with endocrinology. -- DVT prophylaxis Heparin 5000 units subcu every 8 hours for DVT prophylaxis. Protonix 40 mg p.o. daily for GI prophylaxis. --Patient is a full code Daily clinical course: 04/13/21 Patient presented with syncope, has symptomatic bradycardia. Cardiology consulted to see. Check FT4, Mg, Phos 04/14/21 patient presented with syncope , had symptomatic bradycardia. He was on Exelon patch which was discontinued by Cardiology. HR improving 59. Likely dc home tomorrow and follow with cardiology as outpatient if heart rate stays above 60s. 04/15/21: pt with persistent lightheadedness and syncope during PT today, not stable for d/c. order brain MRI Subjective Date of service: 04/15/21 Interval history: Patient seen and examined. Medical records and medication list reviewed. No acute event overnight noted by the RN. Patient denies any chest pain or difficulty breathing. Patient is tolerating diet. Discussed plan of care at bedside with patient. Patient was planned for discharge today but continues to have syncopal episode during physical therapy Objective - Exam Narrative Exam: Gen: Not in acute distress, white male lying in bed HEENT: Normocephalic, atraumatic Neck : supple, no JVD Heart:S1 and S2 reg, no murmurs, rubs or gallop Lungs: clear to auscultation bilaterally, no wheeze Abd: Soft , non tender, non distended, normal bowel sounds Ext: No edema, no clubbing, no cyanosis Neuro: Awake, alert, oriented, moves all extremities - Constitutional Vitals: Vital Signs - 12hr 04/17/21 04/17/21 04/17/21 03:00 05:20 08:44 Temperature 98.0 F Pulse Rate 49 L 59 L Respiratory 18 Rate Blood Pressure Blood Pressure 108/62 [Left] O2 Sat by Pulse 95 Oximetry 04/17/21 04/17/21 04/17/21 08:49 09:10 12:00 Temperature 98.8 F 97.5 F L Pulse Rate 83 59 L 57 L Respiratory 16 20 Rate Blood Pressure 124/78 Blood Pressure 114/65 [Left] O2 Sat by Pulse 92 94 Oximetry - Labs CBC & Chem 7: 04/12/21 22:43 04/12/21 22:43 HEART Score - HEART Score Troponin: Troponin T < 0.010 ng/mL (0.00-0.029) 04/13/21 06:00
[2021-04-17] MEDS ORDERED: LORazepam 2 MG/ML VIAL IV NR (15:24)
--- NOTE | 2021-04-17 15:48 | Progress Note ---
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 In the ER patient noted to have significant bradycardia, patient admitted to the hospital at medical telemetry and consulted cardiology. Assessment and plan: -- Syncope Unknown etiology: Most likely due to symptomatic bradycardia MRI without any acute process, initiated on meclizine Continue to monitor the patient at telemetry Continue aspirin 81 mg p.o. daily. Lipitor 40 mg p.o. daily. Normal saline at the rate of 100 cc/h. 2D echo with preserved EF, Consult neurology for further evaluation management: Recommended EEG pending -- Symptomatic bradycardia Aspirin 81 mg p.o. daily. Lipitor 40 mg p.o. daily. 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 twice daily and Exelon patch. Exelon patch is discontinued for bradycardia, we will monitor the patient closely -- Hypothyroidism Levothyroxine 25 mcg p.o. daily. Normal TSH. Outpatient follow-up with endocrinology. -- DVT prophylaxis Heparin 5000 units subcu every 8 hours for DVT prophylaxis. Protonix 40 mg p.o. daily for GI prophylaxis. --Patient is a full code Daily clinical course: 04/13/21 Patient presented with syncope, has symptomatic bradycardia. Cardiology consulted to see. Check FT4, Mg, Phos 04/14/21 patient presented with syncope , had symptomatic bradycardia. He was on Exelon patch which was discontinued by Cardiology. HR improving 59. Likely dc home tomorrow and follow with cardiology as outpatient if heart rate stays above 60s. 04/15/21: pt with persistent lightheadedness and syncope during PT today, not stable for d/c. order brain MRI 04/16/21: MRI w/o any acute process. will order meclizine and will consult neurology. PT recommended subacute rehab. 04/17/21: Patient clinically appears to be stable, discharge pending on subacute rehab placement. Continue to monitor with supportive care. EEG ordered by neurology, will follow result. Subjective Date of service: 04/17/21 Interval history: Patient seen and examined. Medical records and medication list reviewed. No acute event overnight noted by the RN. Patient denies any chest pain or difficulty breathing. Patient is tolerating diet. Discussed plan of care at bedside with patient. discharge pending on STAR placement Objective - Exam Narrative Exam: Gen: Not in acute distress, white male lying in bed HEENT: Normocephalic, atraumatic Neck : supple, no JVD Heart:S1 and S2 reg, no murmurs, rubs or gallop Lungs: clear to auscultation bilaterally, no wheeze Abd: Soft , non tender, non distended, normal bowel sounds Ext: No edema, no clubbing, no cyanosis Neuro: Awake, alert, oriented, moves all extremities - Constitutional Vitals: Vital Signs - 12hr 04/17/21 04/17/21 04/17/21 05:20 08:44 08:49 Temperature 98.0 F 98.8 F Pulse Rate 59 L 83 Respiratory 18 16 Rate Blood Pressure 124/78 Blood Pressure 108/62 [Left] O2 Sat by Pulse 95 92 Oximetry 04/17/21 04/17/21 09:10 12:00 Temperature 97.5 F L Pulse Rate 59 L 57 L Respiratory 20 Rate Blood Pressure Blood Pressure 114/65 [Left] O2 Sat by Pulse 94 Oximetry - Labs CBC & Chem 7: 04/18/21 05:23 04/18/21 05:23 HEART Score - HEART Score Troponin: Troponin T < 0.010 ng/mL (0.00-0.029) 04/13/21 06:00
[2021-04-17 17:09] LABS: Hematocrit 42.4 % (35.5-45.6); Hemoglobin 14.4 gm/dl (11.8-15.2); Mean Corpuscular HGB Conc 34 % (32-34); Mean Corpuscular Volume 92 fl (84-94); Platelet Count 187 K/mm3 (140-440); Red Blood Count 4.61 M/mm3 (3.65-5.03); Red Cell Distribution Width 13.5 % (13.2-15.2)
[2021-04-17 17:14] LABS: BUN/Creatinine Ratio 23; Blood Urea Nitrogen 23 mg/dL (9-20); Calcium 8.6 mg/dL (8.4-10.2); Hemolysis Index 59
[2021-04-17] MEDS: LATANOPROST 0.005% OPHTH SOLN 2.5 ML OU SCH (18:44)
[2021-04-18] MEDS: LEVOTHYROXINE 25 MCG TAB PO SCH (06:06)
[2021-04-18] MEDS: HEPARIN 5,000 UNIT/1 ML VIAL SUB-Q SCH (06:07)
[2021-04-18 06:15] LABS: Basophils % (Auto) 0.4 % (0.0-1.8); Eosinophils # (Auto) 0.2 K/mm3 (0.0-0.4); Eosinophils % (Auto) 3.5 % (0.0-4.3); Hematocrit 41.8 % (35.5-45.6); Hemoglobin 14.2 gm/dl (11.8-15.2); Lymphocytes % (Auto) 28.7 % (13.4-35.0); Mean Corpuscular HGB Conc 34 % (32-34); Mean Corpuscular Volume 92 fl (84-94); Monocytes # (Auto) 0.7 K/mm3 (0.0-0.8); Monocytes % (Auto) 9.7 % (0.0-7.3); Platelet Count 178 K/mm3 (140-440); Red Blood Count 4.55 M/mm3 (3.65-5.03); Red Cell Distribution Width 13.7 % (13.2-15.2)
[2021-04-18 06:22] LABS: BUN/Creatinine Ratio 23; Blood Urea Nitrogen 23 mg/dL (9-20); Calcium 8.7 mg/dL (8.4-10.2); Hemolysis Index 17
[2021-04-18] MEDS ORDERED: LORazepam 2 MG/ML VIAL ONE (07:42)
[2021-04-18] MEDS ORDERED: LORazepam 2 MG/ML VIAL IV ONE (07:50)
--- NOTE | 2021-04-18 09:22 | Progress Note ---
Assessment and Plan Sinus bradycardia TSH was normal at 2.9. Echocardiogram shows well-preserved left ventricular systolic function with ejection fraction 50-55%. Altered mental status Recommendation Avoid AV luke blocking agents. Otherwise, conservative cardiac management and outpatient follow-up with electrophysiology. Subjective Date of service: 04/18/21 Interval history: Patient is alert, resting in bed comfortably. No cardiac complaints. Currently, he is sinus rhythm, rate 62 on telemetry. Objective Vital Signs Temp Pulse Resp BP BP Pulse Ox 04/18/21 04:32 97.5 F L 59 L 20 112/69 93 04/18/21 00:34 57 L 04/17/21 23:37 97.9 F 57 L 20 89/52 95 04/17/21 21:00 95 04/17/21 19:38 98.2 F 81 20 102/72 95 04/17/21 16:00 97.3 F L 62 18 117/67 94 04/17/21 12:00 97.5 F L 57 L 20 114/65 94 - Physical Examination General: No Apparent Distress HEENT: Positive: EOMI Neck: Positive: neck supple Cardiac: Positive: Reg Rate and Rhythm Lungs: Positive: Decreased Breath Sounds Neuro: Positive: Grossly Intact Abdomen: Positive: Soft, Active Bowel Sounds Skin: Positive: Clear Extremities: Absent: edema - Labs and Meds CBC 04/17/21 04/18/21 Range/Units 16:17 05:23 WBC 6.3 6.9 (4.5-11.0) K/mm3 RBC 4.61 4.55 (3.65-5.03) M/mm3 Hgb 14.4 14.2 (11.8-15.2) gm/dl Hct 42.4 41.8 (35.5-45.6) % Plt Count 187 178 (140-440) K/mm3 Lymph # (Auto) 2.0 (1.2-5.4) K/mm3 [place] # (Auto) 0.7 (0.0-0.8) K/mm3 Eos # (Auto) 0.2 (0.0-0.4) K/mm3 Baso # (Auto) 0.0 (0.0-0.1) K/mm3 Comprehensive Metabolic Panel 04/17/21 04/18/21 Range/Units 16:17 05:23 Sodium 139 140 (137-145) mmol/L Potassium 4.6 4.8 (3.6-5.0) mmol/L Chloride 104.8 104.8 (98-107) mmol/L Carbon Dioxide 25 25 (22-30) mmol/L BUN 23 H 23 H (9-20) mg/dL Creatinine 1.0 1.0 (0.8-1.3) mg/dL Glucose 91 91 (75-100) mg/dL Calcium 8.6 8.7 (8.4-10.2) mg/dL
--- NOTE | 2021-04-18 09:34 | Magnetic Resonance Report ---
MRI BRAIN 04/18/2021 INDICATION / CLINICAL INFORMATION: Seizure disorder, Confusion, weakness Patient given Ativan, best possible exam, patient motion.. TECHNIQUE: Multiplanar, multisequence MR images of the brain were obtained. COMPARISON: 04/16/2021 FINDINGS: BRAIN / INTRACRANIAL CONTENTS: Unenhanced and enhanced MR images of the brain were obtained and adelina red to the prior exam from 2 days earlier. There is been no change. There is no evidence of acute abnormality. Ventricles and sulci remain normal in size and shape for a patient of this age. There is no evidence of acute ischemic injury, hemorrhage, or mass. There are no abnormal extra-axial fluid collections. Postcontrast images demonstrate no abnormal contrast enhancement. EXTRACRANIAL: Unremarkable CRANIOCERVICAL JUNCTION: No significant abnormality. VASCULAR FLOW-VOIDS: No significant abnormality. IMPRESSION: No acute abnormality. Essentially negative unenhanced and enhanced MRI of the brain. No significant change when compared to 04/16/2021 Signer Name: Cesar Paulson MD Signed: 04/18/2021 9:30 AM Workstation Name: [id number]
[2021-04-18] MEDS: TAMSULOSIN 0.4 MG CAP PO SCH (10:07)
[2021-04-18] MEDS: MEMANTINE 10 MG TAB PO SCH (10:07)
[2021-04-18] MEDS: GABAPENTIN 300 MG CAP PO SCH (10:07)
[2021-04-18] MEDS: DOCUSATE SODIUM 100 MG CAP PO SCH (10:07)
--- NOTE | 2021-04-18 13:19 | Progress Note ---
Assessment and Plan Assessment and Plan VTE prophylaxis?: Chemical - Patient Problems # Syncope? etiology not clear -pt. is bad historian -Seizure can not be excluded Unlikley --EEG is remarkable for slight slowing consistent with hx of dementia -Possible hypotension/dehydration with bradycardia contribute to condition--Bradycardia improved with stop of Exelon patch - exam is positive for orthostatic changes -Admit the patient to the medical telemetry. - Aspirin 81 mg p.o. daily. - Lipitor 40 mg p.o. daily. - Normal saline at the rate of 100 cc/h. - serial cardiac enzyme is negative. We also do echocardiogram. We will monitor the patient closely. Will consult cardiology for evaluation -Echo with EF#50-55 -EEG is slight back ground slowing -MRI brain with gd is unremarkable -cardiac monitoring -check for orthostatic changes is noted !!! # Symptomatic bradycardia -Aspirin 81 mg p.o. daily. Lipitor 40 mg p.o. daily. Normal saline at the rate of 100 cc/h. -Agree on stop exelon patch -stop neurontine due to side effect of dizziness # Dementia -Patient is on Namenda 10 mg p.o. twice daily - Exelon patch. stop (4) Hypothyroidism -Levothyroxine 25 mcg p.o. daily. - We will check the TSH. Outpatient follow-up with endocrinology. (5) DVT prophylaxis -Heparin 5000 units subcu every 8 hours for DVT prophylaxis. - Protonix 40 mg p.o. daily for GI prophylaxis. - Patient is a full code PLAN 1- check for fluctuating BP 2- Stop exelon and neurontine 3- Increase po intake 4- Consider margi hose-knee hi- during the day 5- neurology follow up for dementia will sign off Subjective Date of service: 04/18/21 Principal diagnosis: syncopy? fall Interval history: doing well alert disoriented to date , knows place denied dizziness Repeat MRI brain with gd is unremarkable EEG showed mild back ground slowing Vital today lying 130/73 HR#64 sitting 129/78 HR#69 Standing 113/75 Hr#78 findings are suggestive of orthostatic changes HR improved and corrected with standing up finding is suggestive of dehydration Objective - Vital Sign Vital Signs - 12hr 04/18/21 04/18/21 04:32 12:31 Temperature 97.5 F L 98.6 F Pulse Rate 59 L 63 Respiratory 20 20 Rate Blood Pressure 112/69 130/73 O2 Sat by Pulse 93 94 Oximetry - General Apperance Constitutional: comfortable - EENT EENT: mucous membranes moist - Respiratory Respiratory: chest non-tender, lungs clear - Cardiovascular Cardiovascular: regular rate, normal S1, normal S2 Extremities: no peripheral edema bilat, no clubbing, cyanosis - Gastrointestinal Gastrointestinal: normoactive bowel sounds - Integumentary Integumentary: normal - Neurologic Cranial nerve examination: PERRL, EOMI, intact Speech examination: intact Detailed motor examination: grossly full strength in Reflex and gait examination: other (slight unsteady on standing up) Cerebellar examination: other (no ataxia) - Laboratory Findings CBC and BMP: 04/18/21 05:23 04/18/21 05:23 Abnormal Lab Findings: Abnormal Labs 04/12/21 04/12/21 04/12/21 14:25 14:25 18:18 Lymph % (Auto) [place] % (Auto) 8.4 H Chloride 108.3 H BUN 31 H Calcium Ammonia 18.0 L 04/12/21 04/12/21 04/17/21 22:43 22:43 16:17 Lymph % (Auto) 35.4 H [place] % (Auto) 9.4 H Chloride 107.2 H BUN 29 H 23 H Calcium 8.2 L Ammonia 04/18/21 04/18/21 05:23 05:23 Lymph % (Auto) [place] % (Auto) 9.7 H Chloride BUN 23 H Calcium Ammonia
[2021-04-18] MEDS ORDERED: SODIUM CHLORIDE 0.9% 1000 ML 500 ML IV ONE (14:26)
--- NOTE | 2021-04-18 14:26 | Discharge Summary ---
Providers - Providers Date of Admission: 04/13/21 00:57 Date of discharge: 04/18/21 Attending physician: RENAN BETANCUR 04/12/21 20:40 Consult to Cardiology [CONS] Routine Consulting Provider: NADIA BUSTILLOS Reason For Exam: Symptomatic Bradycardia - Syncope 04/15/21 14:21 Physical Therapy Evaluation and Treat [CONS] Routine Comment: Reason For Exam: Debility 04/17/21 10:58 Consult to Physician [CONS] Routine Comment: Consulting Provider: ELIANE DUBON Physician Instructions: Reason For Exam: recurrent syncope Primary care physician: BENJIE VELASCO Hospitalization Condition: Fair Pertinent studies: CXR MRI brain with and w/o contrast 2d echo Hospital course: 71-year-old male with history of dementia, hypothyroidism, BPH, and 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 In the ER patient noted to have significant bradycardia, patient admitted to the hospital at medical telemetry and consulted cardiology. Daily clinical course: 04/13/21 Patient presented with syncope, has symptomatic bradycardia. Cardiology consulted to see. Check FT4, Mg, Phos 04/14/21 patient presented with syncope , had symptomatic bradycardia. He was on Exelon patch which was discontinued by Cardiology. HR improving 59. Likely dc home tomorrow and follow with cardiology as outpatient if heart rate stays above 60s. 04/15/21: pt with persistent lightheadedness and syncope during PT today, not stable for d/c. order brain MRI 04/16/21: MRI w/o any acute process. will order meclizine and will consult neurology. PT recommended subacute rehab. 04/17/21: Patient clinically appears to be stable, discharge pending on subacute rehab placement. Continue to monitor with supportive care. EEG ordered by neurology, will follow result. 04/18/21: --EEG is remarkable for slight slowing consistent with hx of dementia. ordered for orthostatic vitals. MRI brain with contrast no acute change. Patient will be d/c today to [facility] after a negative covid test. Assessment and plan: -- Syncope Unknown etiology: Most likely due to symptomatic bradycardia MRI without any acute process, initiated on meclizine Continue to monitor the patient at telemetry Continue aspirin 81 mg p.o. daily. Lipitor 40 mg p.o. daily. Normal saline at the rate of 100 cc/h. 2D echo with preserved EF, Consult neurology for further evaluation management: EEG is remarkable for slight slowing consistent with hx of dementia normal orthostatic vitals -- Symptomatic bradycardia Aspirin 81 mg p.o. daily. Lipitor 40 mg p.o. daily. Cardiology consulted and recommended to avoid AV luke blocking agent Outpatient follow-up with employment interviewer -- Dementia Patient is on Namenda 10 mg p.o. twice daily and Exelon patch. Exelon patch is discontinued for bradycardia, we will monitor the patient closely -- Hypothyroidism Levothyroxine 25 mcg p.o. daily. Normal TSH. Outpatient follow-up with endocrinology. -- DVT prophylaxis Heparin 5000 units subcu every 8 hours for DVT prophylaxis. Protonix 40 mg p.o. daily for GI prophylaxis. --Patient is a full code Disposition: 01 HOME / SELF CARE / HOMELESS Final Discharge Diagnosis (Prints w/discharge instructions): -- Syncope, Most likely due to symptomatic bradycardia. -- Symptomatic bradycardia. -- Dementia. -- Hypothyroidism Time spent for discharge: 34 minutes Core Measure Documentation - Palliative Care Palliative Care/ Comfort Measures: Not Applicable - Core Measures Any of the following diagnoses?: none Exam - Physical Exam Narrative exam: Gen: Not in acute distress, white male lying in bed HEENT: Normocephalic, atraumatic Neck : supple, no JVD Heart:S1 and S2 reg, no murmurs, rubs or gallop Lungs: clear to auscultation bilaterally, no wheeze Abd: Soft , non tender, non distended, normal bowel sounds Ext: No edema, no clubbing, no cyanosis Neuro: Awake, alert, oriented, moves all extremities - Constitutional Vitals: Temp Pulse Resp BP Pulse Ox 98.6 F 63 20 130/73 94 04/18/21 12:31 04/18/21 12:31 04/18/21 12:31 04/18/21 12:31 04/18/21 12:31 Plan Activity: fall precautions Weight Bearing Status: Weight Bear as Tolerated Diet: low fat, low salt Additional Instructions: Outpatient follow-up with employment interviewer Follow up with: NADIA BUSTILLOS MD [Staff Physician] - 7 Days BENJIE VELASCO MD [Primary Care Provider] - 3-5 Days
[2021-04-18 16:29] VITALS: BP 115/70
== END 2021-04-18 16:45 | disposition home or self-care (01) ==
LOC: ED 12:43 → 4A 04-13 00:57 → INTOOBSV 04-13 00:57
PROVIDERS: ADMIT Hospitalist; ATTEND Internal Medicine
DX: R55 Syncope and collapse (principal); Z20.822 Contact with and (suspected) exposure to COVID-19; R00.1 Bradycardia, unspecified; F03.90 Unspecified dementia, unspecified severity, without behavioral disturbance, psychotic disturbance, mood disturbance, and anxiety; E03.9 Hypothyroidism, unspecified; N40.0 Benign prostatic hyperplasia without lower urinary tract symptoms; F04 Amnestic disorder due to known physiological condition; H26.9 Unspecified cataract; R41.82 Altered mental status, unspecified; M25.59 Pain in other specified joint; Z79.82 Long term (current) use of aspirin
CPT/HCPCS: 36415; 70551; 70553; 71045; 80048; 80053; 81001; 82140; 83735; 84100; 84439; 84443; 84484; 85025; 85027; 93005; 93306; 95819; 96361; 96372; 96374; 97110; 97116; 99285; A9270; A9575; G0378; J1644; J2060; J7030; J7040; U0003